=== PATIENT | female | born 1960 | race Caucasian/White ===

== ENCOUNTER 2025-03-31 14:47 | Inpatient (IN) ==
--- NOTE | 2025-03-31 15:08 | Emergency Department Note ---
Impression & Plan Acute pericardial effusion, Pleural effusion, Chest pain, Anemia, Abnormal EKG, Acute headache, Acute neck pain ED Provider Note NAME: DANIEL CABRAL AGE: 64 SEX: F : 1960 ARRIVES VIA: Walk-In INFORMANT: Patient, ED PROVIDER(S): Johnny Stack DO CHIEF COMPLAINT: Chest pain HPI: The patient is a 64-year-old female who presented to the emergency department for an evaluation of chest pain. The patient describes left-sided chest pain that she has been noticing over the course the last few weeks. The patient had an outpatient workup which did show some degree of anemia. She had an inpatient stay at [facility]. At that time she was found to have bilateral pleural effusions. She did have thoracentesis of the left side pleural effusion. The patient states that she was feeling better for short period of time. She was also noted to be anemic at that time. She had been started on colchicine. She was feeling somewhat improved but then symptoms started to worsen. She presents emerged part today because of worsening symptoms. She has been coughing. She has had some productivity of sputum. She denies having any hemoptysis. ROS: See above HPI for pertinent positives & negatives. A total of 10 systems reviewed and were otherwise negative. PAST MEDICAL HISTORY: See Below PAST SURGICAL HISTORY: See Below FAMILY HISTORY: See Below SOCIAL HISTORY: See Below HOME MEDICATIONS: See Below ALLERGIES: See Below VITALS: See Below PHYSICAL EXAMINATION: GENERAL: The patient is awake and alert. The patient appears very uncomfortable. EYES: The conjunctivae are clear. The pupils are round and reactive. EARS, NOSE, MOUTH AND THROAT: The nose is without any evidence of any deformity. Tympanic membranes were clear. NECK: The neck is nontender and supple. RESPIRATORY: Diminished breath sounds were noted bilaterally. There were rales at the left base. There was no crepitus noted. CARDIOVASCULAR: Regular rate and rhythm noted there no murmurs rubs or gallops normal S1 normal S2. GASTROINTESTINAL: The abdomen is soft. Abdomen is nontender. MUSCULOSKELETAL/EXTREMITIES: There is no evidence of gross deformity full range of motion is noted in the hips and shoulders. SKIN: There is no obvious evidence of any rash. There are no petechiae, pallor or cyanosis noted. NEUROLOGIC: Patient is awake alert and oriented x3 MEDICAL DECISION MAKING: The patient is a 64-year-old female who presented to the emergency department for an evaluation of chest pain. The patient has a history of recently diagnosed pericarditis and pleural effusion. The patient was taking colchicine. The patient was also started on Lasix recently. The patient started having returning of symptoms and worsening pain. She was also having trouble breathing. She had exertional dyspnea. I discussed patient's laboratory and radiographic studies with her. She appears to have an elevation in her white blood cell count as well as a return of the pleural effusion. I was concerned this could represent an underlying infection. She was started on IV antibiotics. She was treated with pain medication and IV fluids in the emergency department. She was reevaluated multiple times. I discussed the patient's laboratory and radiographic studies with the on-call pulmonary doctor as well as the on-call [facility]ist. They have agreed to evaluate the patient for further management and disposition. Triage Nursing notes reviewed. Prior medical records reviewed Vital Signs: reviewed and remarkable for no significant abnormalities Differential diagnosis: Cardiac ischemia, aortic dissection, pulmonary embolism, pneumothorax, pneumonia, pericarditis, myocarditis, esophageal rupture, GERD, cholecystitis, pancreatitis, musculoskeletal, as well as other pathologies. ER treatment provided: See below Diagnostics interpreted by me: ECG: EKG was obtained in the emergency department. My interpretation is normal sinus rhythm at 90 bpm. There is no ectopy. Nonspecific T wave flattening and T wave inversions were noted. Inferior Q waves were noted. Cardiac Monitoring: An order was placed for continuous cardiac monitoring. The monitor shows a rate of 72 bpm with sinus rhythm. Laboratory studies: As stated above and show below. Imaging studies: See below. Radiographic imaging was reviewed by myself Consultation(s): I discussed this case with Dr. Agarwal who is on-call for pulmonary medicine. I discussed this case with Dr. Oropeza who is on-call for the [facility]ist group. Past Med/Surg History Problem List (Updated 03/31/25 @ 19:22 by Johnny Stack DO) Acute neck pain (Acute) Acute headache (Acute) Abnormal EKG (Acute) Pericardial effusion Anemia (Acute) Chest pain (Acute) Pleural effusion (Acute) Acute pericardial effusion (Acute) Anxiety Dyslipidemia Medical History Pleural effusion Anemia Surgical History History of thoracentesis Social History Smoking Status: Never smoker Preferred Language: Persian Feels Safe at Home: Yes Allergies Allergies Allergy/AdvReac Type Severity Reaction Status Date / Time tramadol Allergy Severe Vomiting/Le Unverified 03/31/25 17:25 thargic [id number] Reductase AdvReac Unknown Unknown Unverified 03/31/25 17:25 Inhibitor Home Meds Home Medications Medication Instructions Recorded Confirmed escitalopram oxalate 10 mg tablet 10 mg PO QAM 03/31/25 03/31/25 fenofibrate nanocrystallized 145 145 mg PO QAM 03/31/25 03/31/25 mg tablet furosemide 40 mg tablet 40 mg PO QAM 03/31/25 03/31/25 multivitamin 1 tab PO QAM 03/31/25 03/31/25 potassium chloride 20 mEq 20 meq PO BID 03/31/25 03/31/25 tablet,extended release Results & Data (ED) Vital Signs Vital Signs - 24 hr 03/31/25 14:51 03/31/25 15:06 03/31/25 15:06 Temperature 36.8 C Temperature Source Temporal Artery Scan Pulse Rate 101 H 92 H Pulse Rate from SpO2 Sensor 92 H Pulse Rhythm Respiratory Rate 20 27 H Respiratory Effort / Characteristics Non-Labored Respiratory Depth Normal Blood Pressure 118/76 114/82 Blood Pressure Mean 90 92 Pulse Oximetry 97 97 100 Oxygen Delivery Method Room Air Room Air Sepsis Recent Fever Within 48 Hours No Sepsis New/Unexplained Change in Mental Status Yes Sepsis Action Taken by Nursing Physician Notified 03/31/25 15:08 03/31/25 15:27 03/31/25 17:05 Temperature Temperature Source Pulse Rate 92 H 94 H 81 Pulse Rate from SpO2 Sensor Pulse Rhythm Regular Respiratory Rate 16 23 Respiratory Effort / Characteristics Respiratory Depth Blood Pressure 104/61 Blood Pressure Mean 75 Pulse Oximetry 99 Oxygen Delivery Method Room Air Sepsis Recent Fever Within 48 Hours Sepsis New/Unexplained Change in Mental Status Sepsis Action Taken by Nursing 03/31/25 18:02 Temperature Temperature Source Pulse Rate 72 Pulse Rate from SpO2 Sensor 72 Pulse Rhythm Respiratory Rate 15 Respiratory Effort / Characteristics Respiratory Depth Blood Pressure 94/59 L Blood Pressure Mean 70 Pulse Oximetry 97 Oxygen Delivery Method Room Air Sepsis Recent Fever Within 48 Hours Sepsis New/Unexplained Change in Mental Status Sepsis Action Taken by [facility] Medications Current Medication List: was personally reviewed by me Laboratory Data Attestation: I reviewed the patient's lab results. 03/31/25 15:03 03/31/25 15:03 Lab Results 03/31/25 03/31/25 03/31/25 Range/Units 15:03 15:04 15:14 WBC 16.13 H (4.8-10.8) K/ul RBC 3.76 L (4.20-5.40) M/uL Hgb 9.7 L (12.0-16.0) g/dl Hct 30.4 L (37.0-47.0) % MCV 80.9 (80.0-100.0) fL MCH 25.8 (25.0-34.0) pg MCHC 31.9 L (32.0-36.0) g/dL RDW Std Deviation 40.3 (36.4-46.3) fL RDW Coeff of Humphrey 13.8 (11.5-14.5) % Plt Count 583 H (130-400) K/uL MPV 9.8 (9.4-12.4) fL Immature Gran % (Auto) 0.4 % Neut % (Auto) 83.5 % Lymph % (Auto) 10.7 % [place] % (Auto) 5.1 % Eos % (Auto) 0.1 % Baso % (Auto) 0.2 % Neut # (Auto) 13.47 H (1.40-6.50) K/uL Lymph # (Auto) 1.72 (1.20-3.40) K/uL [place] # (Auto) 0.82 H (0.11-0.59) K/uL Eos # (Auto) 0.01 (0.00-0.50) K/uL Baso # (Auto) 0.04 (0.00-0.20) K/uL Immature Gran # (Auto) 0.07 (0.01-0.20) K/uL ESR 108 H (0-30) mm/hr PT 12.4 H (9.0-12.0) Seconds INR 1.2 H (0.9-1.1) APTT 30 (21-31) Seconds PTT Ratio 1.1 D-Dimer 45367 H* (0-500) ug/L FEU Sodium 134 L (136-145) mmol/L Potassium 3.9 (3.5-5.1) mmol/L Chloride 98 (98-107) mmol/L Carbon Dioxide 25 (21-32) mmol/L Anion Gap 11 (3-11) BUN 16 (6-23) mg/dl Creatinine 0.67 (0.6-1.2) mg/dl Est Cr Clr Drug Dosing 70.2 ml/min eGFR 97.54 BUN/Creatinine Ratio 23.9 H (10-20) Glucose 98 (70-99(Fasting)) mg/dl Calcium 9.0 (8.6-10.3) mg/dl Magnesium 1.9 (1.7-2.4) mg/dl Total Bilirubin 0.3 (0.2-1.0) mg/dl AST 23 (13-39) U/L ALT 33 (7-52) U/L Alkaline Phosphatase 79 (34-104) U/L Troponin I High Sens 4.0 (0-14) pg/ml C-Reactive Protein 18.47 H (0-0.5) mg/dl B-Natriuretic Peptide 125 H (0-100) pg/ml Total Protein 7.4 (6.0-8.3) gm/dl Albumin 3.3 L (3.4-5.0) gm/dl Globulin 4.1 H (2.5-4.0) gm/dl Albumin/Globulin Ratio 0.8 L (0.9-2) Procalcitonin 0.12 (0-0.5) ng/ml TSH 1.344 (0.300-4.500) uIu/ml Anaplasma Smear See Comment Babesia Smear See Comment Lyme Disease Screen Negative (Negative) Administered Medications Discontinued Medications Acetaminophen (Ofirmev) 1,000 mg in 100 mls @ 400 mls/hr IV NOW STA Stop: 03/31/25 16:22 Last Infusion: 03/31/25 16:56 Dose: Infused Documented By: Admin: 03/31/25 16:38 Dose: 400 mls/hr Documented By: ANABELLE Piperacillin Sod/Tazobactam Sod (Zosyn) 4.5 gm in 100 mls @ 200 mls/hr IV NOW ONE; Protocol Stop: 03/31/25 16:44 Last Infusion: 03/31/25 17:53 Dose: Infused Documented By: Admin: 03/31/25 17:08 Dose: 200 mls/hr Documented By: ANABELLE Sodium Chloride (Nss) 500 mls @ 999 mls/hr IV .Q31M ONE Stop: 03/31/25 17:05 Last Infusion: 03/31/25 17:53 Dose: Infused Documented By: Admin: 03/31/25 16:38 Dose: 999 mls/hr Documented By: ANABELLE Ioversol (Optiray 320 125ml) 120 ml IV ONCE ONE Stop: 03/31/25 16:35 Last Admin: 03/31/25 16:34 Dose: 120 ml Documented By: TAWANA Ketorolac Tromethamine (Ketorolac Tromethamine 15 Mg/Ml Vial) 10 mg IV NOW ONE Stop: 03/31/25 14:58 Last Admin: 03/31/25 15:24 Dose: 10 mg Documented By: ANABELLE Morphine Sulfate (Morphine Sulfate 4 Mg/Ml 1 Ml Carp\Vial) 4 mg IV NOW STA Stop: 03/31/25 14:58 Last Admin: 03/31/25 15:25 Dose: Not Given Documented By: ANABELLE Ondansetron HCl (Ondansetron Inj 2 Mg/Ml 2 Ml Vial) 4 mg IV NOW STA Stop: 03/31/25 14:58 Last Admin: 03/31/25 15:58 Dose: Not Given Documented By: ANABELLE Imaging Data Attestation: I personally reviewed and interpreted this imaging study as follows: My Impression: 1 view chest x-ray was obtained in the emergency department. My interpretation is cardiomegaly with left pleural effusion, final report below. Radiologist's Impression: Chest X-Ray 03/31/25 14:57 Chest radiograph, one view History: Chest pain Comparison: None Findings: Single AP view of the chest performed. No focal consolidation. Small left pleural effusion. No pneumothorax. The cardiomediastinal silhouette is within normal limits. Normal pulmonary vascularity. No evidence for lymphadenopathy. No visualized bony or soft tissue abnormality. Impression: Small left pleural effusion Electronically signed by Salvatore Lauren 03-31-2025 3:41 PM Chest CTA 03/31/25 16:04 CT pulmonary angiogram with IV contrast History: Chest pain COMPARISON: None TECHNIQUE: CT angiography of the chest was performed without IV contrast followed by IV contrast, including 3D post processing CTA image reconstruction. Dose reduction techniques were achieved by using automatic exposure control and/or adjustment of mA and/or kV according to patient size and/or use of iterative reconstruction technique. FINDINGS: Diagnostic quality: Adequate There is no evidence for pulmonary embolism. The heart is not enlarged. Moderate coronary calcification. There is a moderate pericardial effusion. There are no abnormally enlarged hilar or mediastinal lymph nodes. The central tracheobronchial tree is clear. There is a small left and a trace right pleural effusion. Compressive atelectasis of the left lower lobe. Limited visualized upper abdomen. No destructive osseous changes are seen. IMPRESSION: No evidence for pulmonary embolism. Moderate pericardial effusion. Consider pericarditis. Small left and trace right pleural effusion. Electronically signed by Salvatore Lauren 03-31-2025 4:55 PM Head CTA 03/31/25 16:[address] without contrast CT angiogram of the neck CT angiogram of the brain with contrast Provided History: Headache Comparison: None Technique: HEAD CT: Using multidetector thin collimation helical acquisition technique, axial, coronal and sagittal CT images from the skull base to the vertex were obtained without intravenous contrast. HEAD and NECK CTA: During rapid bolus intravenous injection of nonionic contrast material, axial images were obtained using thin collimation multidetector helical technique from the base of the neck through the of vertex of the head. This CT angiogram data was reconstructed at thin intervals with mild overlap. 3D reconstructions were obtained. The axial source images, multiplanar reformations, 3D reconstructions in both maximum intensity projection display and volume rendered models were reviewed. Dose reduction techniques were achieved by using automatic exposure control and/or adjustment of mA and/or kV according to patient size and/or use of iterative reconstruction technique. Findings: Head CT: There is no intracranial hemorrhage, mass effect, or midline shift. Frey/white matter differentiation in both cerebral hemispheres is preserved. Ventricles are proportionate to the cerebral sulci. Head CTA demonstrates no aneurysm or stenosis of the major intracranial arteries. Neck CTA demonstrates no stenosis of the major cervical arteries. The origins of the great vessels from the aortic arch are patent. No mass is noted within the visualized portions of the cervical soft tissues or lung apices. Left pleural effusion. Impression: 1. Head CTA demonstrates no aneurysm or stenosis of the major intracranial arteries, 2. Neck CTA demonstrates no stenosis of the major cervical arteries. 3. No intracranial hemorrhage on the noncontrast head CT. Electronically signed by Salvatore Lauren 03-31-2025 4:53 PM Neck CTA 03/31/25 16:[address] without contrast CT angiogram of the neck CT angiogram of the brain with contrast Provided History: Headache Comparison: None Technique: HEAD CT: Using multidetector thin collimation helical acquisition technique, axial, coronal and sagittal CT images from the skull base to the vertex were obtained without intravenous contrast. HEAD and NECK CTA: During rapid bolus intravenous injection of nonionic contrast material, axial images were obtained using thin collimation multidetector helical technique from the base of the neck through the of vertex of the head. This CT angiogram data was reconstructed at thin intervals with mild overlap. 3D reconstructions were obtained. The axial source images, multiplanar reformations, 3D reconstructions in both maximum intensity projection display and volume rendered models were reviewed. Dose reduction techniques were achieved by using automatic exposure control and/or adjustment of mA and/or kV according to patient size and/or use of iterative reconstruction technique. Findings: Head CT: There is no intracranial hemorrhage, mass effect, or midline shift. Frey/white matter differentiation in both cerebral hemispheres is preserved. Ventricles are proportionate to the cerebral sulci. Head CTA demonstrates no aneurysm or stenosis of the major intracranial arteries. Neck CTA demonstrates no stenosis of the major cervical arteries. The origins of the great vessels from the aortic arch are patent. No mass is noted within the visualized portions of the cervical soft tissues or lung apices. Left pleural effusion. Impression: 1. Head CTA demonstrates no aneurysm or stenosis of the major intracranial arteries, 2. Neck CTA demonstrates no stenosis of the major cervical arteries. 3. No intracranial hemorrhage on the noncontrast head CT. Electronically signed by Salvatore Lauren 03-31-2025 4:53 PM Abdomen/Pelvis CT 03/31/25 16:20 EXAMINATION: CT of the abdomen and pelvis performed after the administration of IV contrast TECHNIQUE: Helical CT images from the lung bases through the symphysis pubis were obtained with contrast. Coronal and sagittal reformatted images were generated at a workstation for further assessment. Dose reduction techniques were achieved by using automatic exposure control and/or adjustment of mA and/or kV according to patient size and/or use of iterative reconstruction technique. COMPARISON: None HISTORY: Abdominal pain FINDINGS: Liver: No suspicious liver lesions. Portal veins appear patent. Gallbladder: No gallstones. No evidence of acute cholecystitis. Spleen: Normal size. Pancreas: No suspicious pancreatic lesions. The pancreatic duct is not dilated. Adrenal glands: No adrenal nodules. Kidneys: No hydronephrosis or obstructing renal stones. Bladder / Pelvic organs: No masses. Hysterectomy. Trace fluid in the pelvis is nonspecific, likely related to volume status, given the pleural effusions.. Bowel: No bowel obstruction. No abnormal bowel wall thickening. The appendix is unremarkable. Lymph nodes: No retroperitoneal, mesenteric, or pelvic lymphadenopathy. Peritoneum / Retroperitoneum: Trace ascites in the right upper quadrant. Vessels: No infrarenal aortic aneurysm. Bones and soft tissues: No suspicious lesion in the bones. IMPRESSION: No acute process. Trace ascites. Electronically signed by Salvatore Lauren 03-31-2025 5:11 PM Discharge Plan Visit Data Chief Complaint: Shortness of Breath/Dyspnea Stated Complaint: HARD TO BREATH, PAIN IN THE CHEST,EARS AND BONES ED Provider: Johnny Stack Discharge Problem: Acute pericardial effusion, Pleural effusion, Chest pain, Anemia, Abnormal EKG, Acute headache, Acute neck pain Patient Disposition: Being Evaluated by Hospitalist Condition: Fair Forms Stand Alone Forms: [facility] Prescriptions: No Action multivitamin Tablet 1 tab PO QAM furosemide 40 mg Tablet 40 mg PO QAM escitalopram oxalate 10 mg tablet 10 mg PO QAM fenofibrate nanocrystallized 145 mg tablet 145 mg PO QAM potassium chloride 20 mEq Tablet Extended Release 20 meq PO BID Referrals Referrals: Javier Stephen MD [Outside Practitioners] -
[2025-03-31] MEDS: KETOROLAC TROMETHAMINE 15 MG/ML VIAL IV ONE (15:24)
[2025-03-31] MEDS: MoRPHine SULFATE 4 MG/ML 1 ML CARP\\VIAL IV STA (15:25)
[2025-03-31 15:38] LABS: Hematocrit (blood only) 30.4 % (37.0-47.0); Hemoglobin 9.7 g/dl (12.0-16.0); Immature Granulocytes # (auto) 0.07 K/uL (0.01-0.20); Immature Granulocytes % (auto) 0.4 %; Mean Corpuscular Hemoglobin 25.8 pg (25.0-34.0); Mean Corpuscular Volume 80.9 fL (80.0-100.0); Platelet Count 583 K/uL (130-400); RDW Standard Deviation 40.3 fL (36.4-46.3); Red Blood Count 3.76 M/uL (4.20-5.40); White Blood Count 16.13 K/ul (4.8-10.8)
--- NOTE | 2025-03-31 15:41 | XRay Report ---
Chest radiograph, one view History: Chest pain Comparison: None Findings: Single AP view of the chest performed. No focal consolidation. Small left pleural effusion. No pneumothorax. The cardiomediastinal silhouette is within normal limits. Normal pulmonary vascularity. No evidence for lymphadenopathy. No visualized bony or soft tissue abnormality. Impression: Small left pleural effusion Electronically signed by Salvatore Lauren 03-31-2025 3:41 PM
[2025-03-31 15:52] LABS: Anion Gap 11.0 (3-11); Bilirubin,Total 0.3 mg/dl (0.2-1.0); Calcium 9.0 mg/dl (8.6-10.3); Carbon Dioxide 25.0 mmol/L (21-32); Chloride 98.0 mmol/L (98-107); Magnesium 1.9 mg/dl (1.7-2.4); Potassium 3.9 mmol/L (3.5-5.1); Sodium 134.0 mmol/L (136-145)
[2025-03-31 15:58] LABS: Alanine Aminotransferase 33.0 U/L (7-52); Albumin Globulin Ratio 0.8 (0.9-2); Alkaline Phosphatase 79.0 U/L (34-104); Blood Urea Nitrogen 16.0 mg/dl (6-23); Creatinine Clr Calc Pharmacy 70.2 ml/min; Globulin 4.1 gm/dl (2.5-4.0); Glucose 98.0 mg/dl (70-99(Fasting)); Total Protein 7.4 gm/dl (6.0-8.3)
[2025-03-31] MEDS: ONDANSETRON INJ 2 MG/ML 2 ML VIAL IV STA (15:58)
[2025-03-31 16:17] LABS: INR 1.2 (0.9-1.1); Partial Thromboplastin Time 30 Seconds (21-31); Prothrombin Time 12.4 Seconds (9.0-12.0)
[2025-03-31] MEDS: OPTIRAY 320 125ml IV ONE (16:34)
[2025-03-31] MEDS: ACETAMINOPHEN 1,000 MG/100 ML VIAL IV STA (16:38)
[2025-03-31] MEDS: SODIUM CHLORIDE 0.9% 500 ML IV ONE (16:38)
--- NOTE | 2025-03-31 16:53 | CT Scan Report ---
Head CT without contrast CT angiogram of the neck CT angiogram of the brain with contrast Provided History: Headache Comparison: None Technique: HEAD CT: Using multidetector thin collimation helical acquisition technique, axial, coronal and sagittal CT images from the skull base to the vertex were obtained without intravenous contrast. HEAD and NECK CTA: During rapid bolus intravenous injection of nonionic contrast material, axial images were obtained using thin collimation multidetector helical technique from the base of the neck through the of vertex of the head. This CT angiogram data was reconstructed at thin intervals with mild overlap. 3D reconstructions were obtained. The axial source images, multiplanar reformations, 3D reconstructions in both maximum intensity projection display and volume rendered models were reviewed. Dose reduction techniques were achieved by using automatic exposure control and/or adjustment of mA and/or kV according to patient size and/or use of iterative reconstruction technique. Findings: Head CT: There is no intracranial hemorrhage, mass effect, or midline shift. Frey/white matter differentiation in both cerebral hemispheres is preserved. Ventricles are proportionate to the cerebral sulci. Head CTA demonstrates no aneurysm or stenosis of the major intracranial arteries. Neck CTA demonstrates no stenosis of the major cervical arteries. The origins of the great vessels from the aortic arch are patent. No mass is noted within the visualized portions of the cervical soft tissues or lung apices. Left pleural effusion. Impression: 1. Head CTA demonstrates no aneurysm or stenosis of the major intracranial arteries, 2. Neck CTA demonstrates no stenosis of the major cervical arteries. 3. No intracranial hemorrhage on the noncontrast head CT. Electronically signed by Salvatore Lauren 03-31-2025 4:53 PM
--- NOTE | 2025-03-31 16:55 | CT Scan Report ---
CT pulmonary angiogram with IV contrast History: Chest pain COMPARISON: None TECHNIQUE: CT angiography of the chest was performed without IV contrast followed by IV contrast, including 3D post processing CTA image reconstruction. Dose reduction techniques were achieved by using automatic exposure control and/or adjustment of mA and/or kV according to patient size and/or use of iterative reconstruction technique. FINDINGS: Diagnostic quality: Adequate There is no evidence for pulmonary embolism. The heart is not enlarged. Moderate coronary calcification. There is a moderate pericardial effusion. There are no abnormally enlarged hilar or mediastinal lymph nodes. The central tracheobronchial tree is clear. There is a small left and a trace right pleural effusion. Compressive atelectasis of the left lower lobe. Limited visualized upper abdomen. No destructive osseous changes are seen. IMPRESSION: No evidence for pulmonary embolism. Moderate pericardial effusion. Consider pericarditis. Small left and trace right pleural effusion. Electronically signed by Salvatore Lauren 03-31-2025 4:55 PM
[2025-03-31] MEDS: PIPERACILLIN/TAZOBACTAM 4.5 GM/100 ML BAG IV ONE (17:08)
--- NOTE | 2025-03-31 17:11 | CT Scan Report ---
EXAMINATION: CT of the abdomen and pelvis performed after the administration of IV contrast TECHNIQUE: Helical CT images from the lung bases through the symphysis pubis were obtained with contrast. Coronal and sagittal reformatted images were generated at a workstation for further assessment. Dose reduction techniques were achieved by using automatic exposure control and/or adjustment of mA and/or kV according to patient size and/or use of iterative reconstruction technique. COMPARISON: None HISTORY: Abdominal pain FINDINGS: Liver: No suspicious liver lesions. Portal veins appear patent. Gallbladder: No gallstones. No evidence of acute cholecystitis. Spleen: Normal size. Pancreas: No suspicious pancreatic lesions. The pancreatic duct is not dilated. Adrenal glands: No adrenal nodules. Kidneys: No hydronephrosis or obstructing renal stones. Bladder / Pelvic organs: No masses. Hysterectomy. Trace fluid in the pelvis is nonspecific, likely related to volume status, given the pleural effusions.. Bowel: No bowel obstruction. No abnormal bowel wall thickening. The appendix is unremarkable. Lymph nodes: No retroperitoneal, mesenteric, or pelvic lymphadenopathy. Peritoneum / Retroperitoneum: Trace ascites in the right upper quadrant. Vessels: No infrarenal aortic aneurysm. Bones and soft tissues: No suspicious lesion in the bones. IMPRESSION: No acute process. Trace ascites. Electronically signed by Salvatore Lauren 03-31-2025 5:11 PM
--- NOTE | 2025-03-31 18:00 | History & Physical Report ---
Date of Service March 31, 2025 Assessment & Plan (1) Pericardial effusion: Plan: #Pericardial effusion -Moderate on CTA chest -No s/s tamponade. HDS -TTE on 03/02 normal EF and no pericardial effusion per report -Small pericardial effusion was noted at OSH 03/05 -CT 03/21 showed a small pericardial effusion -No history of pericarditis or autoimmune disease -Inflammatory markers greatly elevated -Etiology unclear and differential is broad but suspect autoimmune disease -Denies trauma. CT chest abd/pelvis neg for malignancy Plan -Send viral panel -Send autoimmune panel -Lyme pending -Check TSH -Appreciate cardio input -Cardiac monitoring -Monitor for s/s tamponade #Bilateral Pleural effusions -S/p 450cc drained at OSH in [place]. no pleural fluid analysis available -CTA here showing small/trace b/l effusions -Significant leukocytosis -Doubtful bacterial given her presentation and findings -Likely same etiology as is causing her pericardial effusion Plan -Given her atypical presentation, elevated inflammatory markers and leukocytosis, will begin empiric coverage with unasyn -Appreciate pulm input #Anemia -No s/s acute blood loss -Hgb 9.7 Hgb 11.3 on 03/29 -Normocytic -Suspect ACD but will send Fe panel, B12, folate #Chest pain -Non cardiac chest pain by description -Her Trop is normal -Timing and presentation does not fit ACS/UA #History of HFpEF -Recently diagnosed in february -BNP minimally elevated but no over signs of volume overload -Hold home lasix for now Greater than 90 minutes were spent discussing with ED, reviewing chart, labs, imaging, talking with patient, placing orders and writing documentation History of Present Illness Chief Complaint: SOB, chest pain, joint pain Primary Care Provider: Yvonne Martinez PA-C Ms. Ford is a pleasant 64F with complicated recent PMH who presents with SOB, chest pain, joint pain, fatigue She has had multiple admissions at different hospitals beginning in february for chest pain, SOB. She was admitted at [facility] and had a CT chest 03/05 was neg for PE but did show small pericardial effusion. She was discharged and went on vacation to [place]. There, she developed worsening SOB and was admitted on 03/21 at [facility] in [place]. She was found to have b/l pleural effusions. She was diagnosed with acute HFpEF and started on lasix. She had a thoracentesis. Pleural fluid analysis was not available on EMR. She saw her PCP on 03/29 who recommended she follow up with cardio, pulm and rheumatology. She presents today because she is unable to tolerate the SOB. Her chest pain is substernal radiating to the left and right. She states all of these symptoms began at the same time in february. before that, she denies having any medical issues other than HLD. Chest pain is not exertional. nothing makes it better or worse. no history of CAD or any heart disease prior to february. Denies history of cancer or autoimmune disease. Prior to onset of symptoms, she was just taking a fibrate for HLD. ED vitals stable. Per last PCP note, SBP was in the 90s CT chest showing small L and trace R pleural effusions, moderate pericardial effusion Allergies Allergy/AdvReac Type Severity Reaction Status Date / Time tramadol Allergy Severe Vomiting/Le Unverified 03/31/25 17:25 thargic [id number]-BtY Reductase AdvReac Unknown Unknown Unverified 03/31/25 17:25 Inhibitor Home Medications Medication Instructions Recorded Confirmed Type escitalopram oxalate 10 mg tablet 10 mg PO QAM 03/31/25 03/31/25 History fenofibrate nanocrystallized 145 145 mg PO QAM 03/31/25 03/31/25 History mg tablet furosemide 40 mg tablet 40 mg PO QAM 03/31/25 03/31/25 History multivitamin 1 tab PO QAM 03/31/25 03/31/25 History potassium chloride 20 mEq 20 meq PO BID 03/31/25 03/31/25 History tablet,extended release Past Med/Surg History Problem List (Updated 03/31/25 @ 18:11 by Luke Oropeza DO) Pericardial effusion Anemia (Acute) Chest pain (Acute) Pleural effusion (Acute) Acute pericardial effusion (Acute) Anxiety Dyslipidemia Medical History Pleural effusion Anemia Surgical History History of thoracentesis Social History Smoking Status: Never smoker Preferred Language: Pashto Feels Safe at Home: Yes Review of Systems Review of Systems: 14 point ROS neg unless stated in HPI Physical Exam Physical Exam: Vitals and labs reviewed General: Well appearing, NAD HEENT: EOMI, PERRLA Neck: Supple Cardiac: RRR no rubs gallops or murmurs Lungs: CTA no rhonchi wheezing or rales Abd: S NT ND BS positive : Deffered MSK: Full ROM. No obvious deformities Ext: No Edema cyanosis Skin: Warm, Dry Neuro: AOx3 No focal deficits. Psych: Normal Mood Results & Data Results & Data Vital Signs (Past 12 Hours) Vital Signs Temp Pulse Resp BP Pulse Ox O2 Del Method 03/31/25 17:05 81 23 104/61 03/31/25 15:27 94 H 03/31/25 15:08 92 H 16 99 Room Air 03/31/25 15:06 92 H 27 H 114/82 100 03/31/25 15:06 97 Room Air 03/31/25 14:51 36.8 C 101 H 20 118/76 97 Room Air Laboratory Results Abnormal lab results 03/31/25 03/31/25 03/31/25 Range/Units 15:03 15:04 15:14 WBC 16.13 H (4.8-10.8) K/ul RBC 3.76 L (4.20-5.40) M/uL Hgb 9.7 L (12.0-16.0) g/dl Hct 30.4 L (37.0-47.0) % MCHC 31.9 L (32.0-36.0) g/dL Plt Count 583 H (130-400) K/uL Neut # (Auto) 13.47 H (1.40-6.50) K/uL [place] # (Auto) 0.82 H (0.11-0.59) K/uL ESR 108 H (0-30) mm/hr PT 12.4 H (9.0-12.0) Seconds INR 1.2 H (0.9-1.1) D-Dimer 40844 H* (0-500) ug/L FEU Sodium 134 L (136-145) mmol/L BUN/Creatinine Ratio 23.9 H (10-20) C-Reactive Protein 18.47 H (0-0.5) mg/dl B-Natriuretic Peptide 125 H (0-100) pg/ml Albumin 3.3 L (3.4-5.0) gm/dl Globulin 4.1 H (2.5-4.0) gm/dl Albumin/Globulin Ratio 0.8 L (0.9-2) Diagnostic Findings Chest X-Ray 03/31/25 14:57 Chest radiograph, one view History: Chest pain Comparison: None Findings: Single AP view of the chest performed. No focal consolidation. Small left pleural effusion. No pneumothorax. The cardiomediastinal silhouette is within normal limits. Normal pulmonary vascularity. No evidence for lymphadenopathy. No visualized bony or soft tissue abnormality. Impression: Small left pleural effusion Electronically signed by Salvatore Lauren 03-31-2025 3:41 PM Chest CTA 03/31/25 16:04 CT pulmonary angiogram with IV contrast History: Chest pain COMPARISON: None TECHNIQUE: CT angiography of the chest was performed without IV contrast followed by IV contrast, including 3D post processing CTA image reconstruction. Dose reduction techniques were achieved by using automatic exposure control and/or adjustment of mA and/or kV according to patient size and/or use of iterative reconstruction technique. FINDINGS: Diagnostic quality: Adequate There is no evidence for pulmonary embolism. The heart is not enlarged. Moderate coronary calcification. There is a moderate pericardial effusion. There are no abnormally enlarged hilar or mediastinal lymph nodes. The central tracheobronchial tree is clear. There is a small left and a trace right pleural effusion. Compressive atelectasis of the left lower lobe. Limited visualized upper abdomen. No destructive osseous changes are seen. IMPRESSION: No evidence for pulmonary embolism. Moderate pericardial effusion. Consider pericarditis. Small left and trace right pleural effusion. Electronically signed by Salvatore Lauren 03-31-2025 4:55 PM Head CTA 03/31/25 16:[address] without contrast CT angiogram of the neck CT angiogram of the brain with contrast Provided History: Headache Comparison: None Technique: HEAD CT: Using multidetector thin collimation helical acquisition technique, axial, coronal and sagittal CT images from the skull base to the vertex were obtained without intravenous contrast. HEAD and NECK CTA: During rapid bolus intravenous injection of nonionic contrast material, axial images were obtained using thin collimation multidetector helical technique from the base of the neck through the of vertex of the head. This CT angiogram data was reconstructed at thin intervals with mild overlap. 3D reconstructions were obtained. The axial source images, multiplanar reformations, 3D reconstructions in both maximum intensity projection display and volume rendered models were reviewed. Dose reduction techniques were achieved by using automatic exposure control and/or adjustment of mA and/or kV according to patient size and/or use of iterative reconstruction technique. Findings: Head CT: There is no intracranial hemorrhage, mass effect, or midline shift. Frey/white matter differentiation in both cerebral hemispheres is preserved. Ventricles are proportionate to the cerebral sulci. Head CTA demonstrates no aneurysm or stenosis of the major intracranial arteries. Neck CTA demonstrates no stenosis of the major cervical arteries. The origins of the great vessels from the aortic arch are patent. No mass is noted within the visualized portions of the cervical soft tissues or lung apices. Left pleural effusion. Impression: 1. Head CTA demonstrates no aneurysm or stenosis of the major intracranial arteries, 2. Neck CTA demonstrates no stenosis of the major cervical arteries. 3. No intracranial hemorrhage on the noncontrast head CT. Electronically signed by Salvatore Lauren 03-31-2025 4:53 PM Neck CTA 03/31/25 16:[address] without contrast CT angiogram of the neck CT angiogram of the brain with contrast Provided History: Headache Comparison: None Technique: HEAD CT: Using multidetector thin collimation helical acquisition technique, axial, coronal and sagittal CT images from the skull base to the vertex were obtained without intravenous contrast. HEAD and NECK CTA: During rapid bolus intravenous injection of nonionic contrast material, axial images were obtained using thin collimation multidetector helical technique from the base of the neck through the of vertex of the head. This CT angiogram data was reconstructed at thin intervals with mild overlap. 3D reconstructions were obtained. The axial source images, multiplanar reformations, 3D reconstructions in both maximum intensity projection display and volume rendered models were reviewed. Dose reduction techniques were achieved by using automatic exposure control and/or adjustment of mA and/or kV according to patient size and/or use of iterative reconstruction technique. Findings: Head CT: There is no intracranial hemorrhage, mass effect, or midline shift. Frey/white matter differentiation in both cerebral hemispheres is preserved. Ventricles are proportionate to the cerebral sulci. Head CTA demonstrates no aneurysm or stenosis of the major intracranial arteries. Neck CTA demonstrates no stenosis of the major cervical arteries. The origins of the great vessels from the aortic arch are patent. No mass is noted within the visualized portions of the cervical soft tissues or lung apices. Left pleural effusion. Impression: 1. Head CTA demonstrates no aneurysm or stenosis of the major intracranial arteries, 2. Neck CTA demonstrates no stenosis of the major cervical arteries. 3. No intracranial hemorrhage on the noncontrast head CT. Electronically signed by Salvatore Lauren 03-31-2025 4:53 PM Abdomen/Pelvis CT 03/31/25 16:20 EXAMINATION: CT of the abdomen and pelvis performed after the administration of IV contrast TECHNIQUE: Helical CT images from the lung bases through the symphysis pubis were obtained with contrast. Coronal and sagittal reformatted images were generated at a workstation for further assessment. Dose reduction techniques were achieved by using automatic exposure control and/or adjustment of mA and/or kV according to patient size and/or use of iterative reconstruction technique. COMPARISON: None HISTORY: Abdominal pain FINDINGS: Liver: No suspicious liver lesions. Portal veins appear patent. Gallbladder: No gallstones. No evidence of acute cholecystitis. Spleen: Normal size. Pancreas: No suspicious pancreatic lesions. The pancreatic duct is not dilated. Adrenal glands: No adrenal nodules. Kidneys: No hydronephrosis or obstructing renal stones. Bladder / Pelvic organs: No masses. Hysterectomy. Trace fluid in the pelvis is nonspecific, likely related to volume status, given the pleural effusions.. Bowel: No bowel obstruction. No abnormal bowel wall thickening. The appendix is unremarkable. Lymph nodes: No retroperitoneal, mesenteric, or pelvic lymphadenopathy. Peritoneum / Retroperitoneum: Trace ascites in the right upper quadrant. Vessels: No infrarenal aortic aneurysm. Bones and soft tissues: No suspicious lesion in the bones. IMPRESSION: No acute process. Trace ascites. Electronically signed by Salvatore Lauren 03-31-2025 5:11 PM Code Status & VTE Plan Code Status full VTE Prophylaxis Plan VTE Prophylaxis will be ordered: Yes
[2025-03-31 19:08] LABS: Thyroid Stimulating Hormone 1.344 uIu/ml (0.300-4.500)
--- NOTE | 2025-03-31 20:10 | Pulmonary Consultation ---
Date of Consultation March 31, 2025 Assessment & Plan (1) Pleural effusion: (2) Acute pericardial effusion: (3) GIBSON (dyspnea on exertion): (4) Chest pain: Plan Symptoms are worrisome for autoimmune disorder however the picture is not clear at this time. We will order connective tissue/autoimmune workup. Will also get CK level. Will perform bedside ultrasound tomorrow morning to see if there is enough fluid to perform thoracentesis. Rheumatology and cardiology are both consulted. Inflammatory markers are significantly elevated, however seems unlikely that this would be an acute bacterial infection given the duration of her symptoms. I reviewed the CT imaging of the chest independently. There are bilateral pleural effusions, left greater than right with adjacent lung atelectasis. There is no PE. There is grossly normal-appearing lung parenchyma without cysts or nodules present. No evidence of bronchiectasis. Pericardial effusion is present. Some possible mild GGO's in the right upper lobe posteriorly. No bulky adenopathy present. Thank you for this consult. I will follow along with you. History of Present Illness History of Present Illness Patient is a pleasant 64-year-old female with a past medical history significant for dyslipidemia and mood disorder. The patient presents to the hospital with worsening chest pain and orthopnea. Imaging of the chest showed a left-sided pleural effusion. Labs showed significant leukocytosis and elevated inflammatory markers and a D-dimer of 20,000. The patient was taken for CT imaging with CTA of the head neck chest abdomen and pelvis. CT of the head was unremarkable. CT of the neck was unremarkable. CT of the chest did not show evidence of pulmonary embolism. A moderate pericardial effusion was noted and small left and trace right pleural effusions were appreciated. CT of the abdomen and pelvis did not show any acute abdominal process, trace ascites was present. The patient was admitted to the hospital service and pulmonary has been consulted. When I examined the patient in the emergency department today she is resting comfortably in bed. She had pillars well and not in distress. The patient states that throughout her life she has been active, was a runner for many years and likes to be outdoors hiking and playing with her grandkids. This spring in December she started becoming more short of breath. She thought that this was due to deconditioning but then in February she developed severe stabbing chest pain that radiated from her chest to her back and orthopnea which made her believe she was having a heart attack for which she presented to the hospital. VA was ruled out. She presented back to the hospital again multiple times for similar symptoms. The patient then went on vacation to [place] and later February and had again severe chest pain and presented to a hospital. In [place] they noted that she had a pericardial effusion and a pleural effusion on the left. She underwent thoracentesis with 450 cc removed. She does not recall the results of the studies and a clear diagnosis was not achieved. The patient was seen in the outpatient setting and started on Lasix and potassium approximately 1 week ago. However today she started having pain again in her chest and orthopnea so she presented back to the hospital. The patient endorses occasional night sweats and weight loss. She says that her weight has decreased from 153 pounds to 128 pounds. She has a low appetite. She feels as though she is more stiff and having generalized joint aches and pains. She feels as though her muscles hurt even if you touch them. She also states that she is more clumsy and has been falling more. She notices some mild finger numbness and occasional nausea with dry mouth. Her home medications include fenofibrate, woman's multivitamin and Lexapro. As mentioned above she started taking Lasix and potassium last week on . The patient denies a personal history of autoimmune disorders, she d oes not travel overseas, she has not had a tick bite in the last year. She is up-to-date on her cancer screening including colon and breast cancer. The patient does note that she was taking Lomaira (phentermine) for weight loss last winter but stopped it in the spring when she started having the chest discomfort. She denies any other [id number] supplements. She is a lifetime non-smoker. 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 Does not travel overseas. Has no pets or birds in the home. On examination she is resting comfortably on room air. Heart is of regular rate and rhythm, no murmurs appreciated. Lungs are clear to auscultation without wheezing. Occasional cough is present productive of greenish colored phlegm. Abdomen is flat and nontender and nondistended. Skin is warm and dry without evidence of rash. Joints are without effusions or deformities throughout. No lymphadenopathy is appreciated in the cervical, supraclavicular or axillary regions. She does endorse pain to palpation of the left axilla. There is also pain when I palpate her posterior neck. The patient states that she possibly had a viral illness last spring but cannot recall if it was close to the time of onset of her chest discomfort. She did not get treated or tested for this illness. Previous investigations: Thoracentesis in February with 450 cc removed, do not have results of study. Transthoracic echocardiogram 03/02/2025: Normal EF, no pericardial effusion. Small pericardial effusion noted from outside hospital on 03/05/2025. CT showed a small pericardial effusion on 03/21/2025. Allergies Allergy/AdvReac Type Severity Reaction Status Date / Time tramadol Allergy Severe Vomiting/Le Unverified 03/31/25 17:25 thargic [id number]-[id number]-[id number] Reductase AdvReac Unknown Unknown Unverified 03/31/25 17:25 Inhibitor Home Medications Medication Instructions Recorded Confirmed Type escitalopram oxalate 10 mg tablet 10 mg PO QAM 03/31/25 03/31/25 History fenofibrate nanocrystallized 145 145 mg PO QAM 03/31/25 03/31/25 History mg tablet furosemide 40 mg tablet 40 mg PO QAM 03/31/25 03/31/25 History multivitamin 1 tab PO QAM 03/31/25 03/31/25 History potassium chloride 20 mEq 20 meq PO BID 03/31/25 03/31/25 History tablet,extended release Patient History Medical History Pleural effusion Anemia Surgical History History of thoracentesis Social History Smoking Status: Never smoker Preferred Language: Fijian Feels Safe at Home: Yes Review of Systems Review of Systems: 12 point review of systems obtained in d etail. Negative except as in my HPI Physical Exam Physical Exam: Physical examination: General: Well-appearing, well-nourished and not in acute distress. HEENT: Normocephalic, atraumatic. Extraocular movements intact. Sclera are nonicteric. No JVD appreciated. Skin: Warm and dry. No rashes appreciated. No jaundice appreciated. Lymphatic: No pathologic/enlarged lymph nodes palpated in the neck, axilla. Cardiovascular: Heart is a regular rate and rhythm, no murmurs appreciated on my exam. No significant lower extremity edema. Lungs: Clear bilaterally, no wheezing appreciated. No crackles. Nontachypneic. Resting comfortably on room air. Abdomen: Nondistended, nontender to palpation. No masses appreciated. Musculoskeletal: Normal muscle mass and tone. No gross joint deformity abnormalities. No effusions appreciated. Neurologic: Awake and alert, oriented. CN II through XII are grossly intact. Speech is fluent. Nonfocal exam. Psychiatric: Appropriate cooperative during my exam. Results & Data Results & Data Vital Signs (Past 12 Hours) Vital Signs Temp Pulse Resp BP Pulse Ox O2 Del Method 03/31/25 18:02 72 15 94/59 L 97 Room Air 03/31/25 17:05 81 23 104/61 03/31/25 15:27 94 H 03/31/25 15:08 92 H 16 99 Room Air 03/31/25 15:06 92 H 27 H 114/82 100 03/31/25 15:06 97 Room Air 03/31/25 14:51 36.8 C 101 H 20 118/76 97 Room Air PG Care Time/CCT Total # of Minutes Spent Total Time Spent with Patient: Total time spent is greater than 50% in coordination of care (as documented) at patient's floor/unit and/or counseling patient: [place] [address] INT INP/OBS CARE 3/75MIN Patient Type New History Comprehensive Exam Comprehensive Medical Decision Making High Complexity Diagnoses Pleural effusion J90 Acute pericardial effusion I30.9 GIBSON (dyspnea on exertion) R06.09 Chest pain R07.9
[2025-03-31 20:16] LABS: Chlamydia pneumoniae PCR Not Detected (NotDetected); Coronavirus 229E PCR Not Detected (NotDetected); Coronavirus CoV-2 (COVID19)PCR Not Detected (NotDetected); Coronavirus HKU1 PCR Not Detected (NotDetected); Coronavirus NL63 PCR Not Detected (NotDetected); Coronavirus OC43PCR Not Detected (NotDetected); Human Metapneumovirus PCR Not Detected (NotDetected); Parainfluenza Virus 1 PCR Not Detected (NotDetected); Parainfluenza Virus 2 PCR Not Detected (NotDetected); Parainfluenza Virus 3 PCR Not Detected (NotDetected); Parainfluenza Virus 4 PCR Not Detected (NotDetected); Respiratory Syncytial VirusPCR Not Detected (NotDetected); Rhinovirus/Enterovirus PCR Not Detected (NotDetected)
[2025-03-31] MEDS ORDERED: ONDANSETRON INJ 2 MG/ML 2 ML VIAL IV PRN (20:18)
[2025-03-31] MEDS: AMPICILLIN/SULBACTAM SOD 3,000 MG/100 ML BAG IV SCH (20:40)
[2025-03-31] MEDS: HEPARIN SOD 5,000 UNIT/0.5 ML VIAL SQ SCH (20:41)
[2025-03-31 20:54] LABS: Creatine Kinase 45.0 U/L (26-192)
[2025-03-31] MEDS: ACETAMINOPHEN 325 MG TAB PO PRN (22:33)
[2025-04-01 06:31] LABS: Hematocrit (blood only) 26.1 % (37.0-47.0); Hemoglobin 8.6 g/dl (12.0-16.0); Immature Granulocytes # (auto) 0.06 K/uL (0.01-0.20); Immature Granulocytes % (auto) 0.5 %; Mean Corpuscular Hemoglobin 26.5 pg (25.0-34.0); Mean Corpuscular Volume 80.6 fL (80.0-100.0); Platelet Count 431 K/uL (130-400); RDW Standard Deviation 40.5 fL (36.4-46.3); Red Blood Count 3.24 M/uL (4.20-5.40); White Blood Count 11.62 K/ul (4.8-10.8)
[2025-04-01 06:56] LABS: Alanine Aminotransferase 25.0 U/L (7-52); Albumin Globulin Ratio 0.9 (0.9-2); Alkaline Phosphatase 75.0 U/L (34-104); Anion Gap 7.0 (3-11); Bilirubin,Total 0.3 mg/dl (0.2-1.0); Blood Urea Nitrogen 13.0 mg/dl (6-23); Calcium 8.9 mg/dl (8.6-10.3); Carbon Dioxide 28.0 mmol/L (21-32); Chloride 101.0 mmol/L (98-107); Creatinine Clr Calc Pharmacy 68.1 ml/min; Globulin 3.3 gm/dl (2.5-4.0); Glucose 98.0 mg/dl (70-99(Fasting)); Iron 10.0 mcg/dl (35-150); Potassium 4.0 mmol/L (3.5-5.1); Sodium 136.0 mmol/L (136-145); Total Iron Binding Cap Calc 238.0 mcg/dl (250-450); Total Protein 6.2 gm/dl (6.0-8.3); Transferrin 170.0 mg/dl (200-360); Transferrin (FE) Percent Satur 4.0 % (15-50)
[2025-04-01 07:12] LABS: Ferritin 405.6 ng/ml (8-388)
[2025-04-01 07:13] LABS: Folate (Folic Acid),Ser orPlas 15.72 ng/ml (>5.38)
[2025-04-01 07:14] LABS: Vitamin B12 > 1500 pg/ml (180-914)
[2025-04-01] MEDS: ESCITALOPRAM OXALATE 10 MG TAB PO SCH (07:47)
--- NOTE | 2025-04-01 10:20 | XRay Report ---
SINGLE VIEW CHEST CLINICAL HISTORY: Status post left thoracentesis FINDINGS: An AP, portable, upright chest radiograph is compared to chest x-ray and chest CT dated 03/10. The cardiac silhouette is enlarged, some of which is likely related to a pericardial effusion when compared to yesterday's chest CT. There is mild atherosclerotic calcification of the thoracic a jorge. There are left larger than right pleural effusions with left basilar consolidation. A focus of pleural-based gas at the left lung base may be related to the procedure. No pneumothorax is clearly s een. The skeletal structures are osteopenic. The bony thorax is grossly intact. IMPRESSION: 1. The cardiac silhouette is enlarged. This is likely related to a pericardial effusion when compared to yesterday's chest CT. 2. Left larger than right pleural effusions with left basilar consolidation. 3. A focus of pleural-based gas at the left lung base is likely related to the thoracentesis. No pneu mothorax is clearly seen. Attention at follow-up is recommended. ACT 112: Negative or not required by law. Electronically signed by: Moose Mobley M.D. 04/01/2025 10:19 AM
[2025-04-01 10:45] LABS: Appearance Pleural Fluid Hazy; Color Pleural Fluid Yellow; RBC Pleural Fluid Auto < 2000 /uL; Source Pleural Fluid Left Lung; WBC Pleural Fluid Auto 1806 /uL
--- NOTE | 2025-04-01 10:46 | Procedure Note ---
Procedure Note Date of Service April 01, 2025 Procedure: Diagnostic therapeutic ultrasound-guided catheter thoracentesis Glass Sander Belt: Dr. Darling Agarwal Indication: Pleural effusion Consent: Signed by patient and verified with timeout prior to procedure Anesthesia: 1% lidocaine without epinephrine local. Procedure: Consent was verified and timeout performed. Appropriate imaging studies were reviewed prior to the procedure. Patient was placed in a seated position and limited thoracic ultrasound was performed of the left chest. A pocket of fluid was identified, appropriate site above the diaphragm for thoracentesis was selected and skin was marked. The skin was prepped and draped in normal sterile fashion. Lidocaine was used for local analgesia. Fluid was aspirated via the finder needle. A small skin hyacinth was made with the scalpel and the catheter over the needle apparatus was advanced over the rib into the pleural space. Using the syringe one-way valve system, a total of 160 mL's of yellow cloudy fluid was removed. Procedure was terminated due to lack of flow after 160 mL of fluid w aspirated. The catheter was removed and observed to be intact. A sterile dressing was applied. Post procedure chest x-ray was ordered. Fluid was sent for labs, culture and cytology. Complications: None Blood loss: Minimal Imaging: [id number]-iu-nuux ultrasound was obtained prior to the procedure. Images were stored. In the left hemithorax the spleen and diaphragm was identified with dark anechoic fluid collection was appreciated above the diaphragm. Quad sign was observed defining the boundaries of the effusion. Jellyfish are not appreciated with atelectatic lung visualized within the pleural fluid. Images uploaded[place] [facility] [place]odes (Charges) Pulmonary/Thoracic Procedure 1: Pulmonary and Thoracic: 96477 Thoracentesis w/o imaging Procedure 2: Pulmonary and Thoracic: 06116 US, Chest, real time with imaging documentation Coding CPT Codes Pulmonary/Thoracic - Pulmonary and Thoracic: 12908 Thoracentesis w/o imaging ([id number]) Pulmonary/Thoracic - Pulmonary and Thoracic: 74046 US, Chest, real time with imaging documentation ([id number]) Additional Codes Date of Service (PG.SURGERY)
--- NOTE | 2025-04-01 10:59 | Pulmonology Progress Note ---
Date of Service April 01, 2025 Assessment & Plan (1) Pleural effusion: (2) Acute pericardial effusion: (3) GIBSON (dyspnea on exertion): (4) Chest pain: Plan Patient is a 64-year-old female with minimal past medical history. The patient presented to the hospital on 03/31/2025 with chest pain and orthopnea. The patient has been having progressive symptoms since December of this year. She has had progressive dyspnea, orthopnea, and episodes of chest pain that were severe enough that she would present to the hospital due to concern for KS. The patient was evaluated at hospital in [place] and early March, during that hospitalization she was found to have a pleural effusion and a thoracentesis was done (left thoracentesis 03/22/2025: 450 cc of yellow and cloudy, WBC 1519 with 24% lymphocytes, negative cultures, negative cytology, cytology only commented reactive mesothelial cells, macrophages and lymphocytes. Protein 4.8, LDH 218, glucose 130, cholesterol 90). The patient did not have additional workup performed as she came back to [place]. During this presentation the patient was found to have a D-dimer of 20,000, ESR greater than 100, CRP 18.5. CT angio of the chest showed bilateral pleural effusions, left greater than right, moderate pericardial effusion. Some adjacent atelectasis next to the effusions and some mild GGO's in the posterior aspect. No significant lymphadenopathy. Pulmonary was consulted for pleural effusion. Diagnoses/problem list: Bilateral pleural effusion, left greater than right Moderate pericardial effusion Dyspnea on exertion Orthopnea Markedly elevated inflammatory markers Plan/recommendations: Symptoms are worrisome for autoimmune disorder however the picture is not clear at this time. We will order connective tissue/autoimmune workup. Will also get CK level. Studies are all pending. Thoracentesis was performed at bedside today on the left with 160 mL of yellow hazy fluid obtained. Rheumatology and cardiology are both consulted. Inflammatory markers are significantly elevated, however seems unlikely that th is would be an acute bacterial infection given the duration of her symptoms and low procalcitonin. I reviewed the CT imaging of the chest independently. There are bilateral pleural effusions, left greater than right with adjacent lung atelectasis. There is no PE. There is grossly normal-appearing lung parenchyma without cysts or nodules present. No evidence of bronchiectasis. Pericardial effusion is present. Some mild GGO's in the right upper lobe posteriorly. No bulky adenopathy present. Will follow thoracentesis and serology workup. Thank you for this consult. I will follow along with you. Admission and Anticipated Discharge Date Admission Date: March 31, 2025 Subjective Patient seen and examined at bedside this morning. Daughters with her today. They were able to pull up the thoracentesis results from her procedure that was done in [place], I have documented them in my AMP. Patient is feeling okay today. Not having severe chest pain this morning. Still having intermittent cough. Still is painful when she takes a deep breath. No fevers or chills overnight. Review of Systems Review of Systems: 12 point review of systems obtained in d etail. Negative except as in my HPI Physical Exam Physical Exam: Physical examination: General: Well-appearing, well-nourished and not in acute distress. HEENT: Normocephalic, atraumatic. Extraocular movements intact. Sclera are nonicteric. No JVD appreciated. Skin: Warm and dry. No rashes appreciated. No jaundice appreciated. Lymphatic: No pathologic/enlarged lymph nodes palpated in the neck, axilla. Cardiovascular: Heart is a regular rate and rhythm, no murmurs appreciated on my exam. No significant lower extremity edema. Lungs: Clear bilaterally, no wheezing appreciated. No crackles. Nontachypneic. Resting comfortably on room air. Abdomen: Nondistended, nontender to palpation. No masses appreciated. Musculoskeletal: Normal muscle mass and tone. No gross joint deformity abnormalities. No effusions appreciated. Neurologic: Awake and alert, oriented. CN II through XII are grossly intact. Speech is fluent. Nonfocal exam. Psychiatric: Appropriate cooperative during my exam. Results & Data Results & Data Vital Signs (Past 12 Hours) Vital Signs Temp Pulse Pulse Resp BP Pulse Ox O2 Del Method 04/01/25 09:16 70 04/01/25 08:06 36.7 C 76 18 92/57 L 96 Nasal Cannula 04/01/25 03:02 36.8 C 74 18 103/66 96 Room Air O2 Flow Rate 04/01/25 09:16 04/01/25 08:06 1 04/01/25 03:02 PG Care Time/CCT Total # of Minutes Spent Total Time Spent with Patient: Total time spent is greater than 50% in coordination of care (as documented) at patient's floor/unit and/or counseling patient: Coding [place] [address] SUB INP/OBS CARE 09/02MIN Patient Type Established History Problem Focused Exam Problem Focused Medical Decision Making Straight Forward Diagnoses Pleural effusion J90 Acute pericardial effusion I30.9 GIBSON (dyspnea on exertion) R06.09 Chest pain R07.9
[2025-04-01 11:07] LABS: Bilirubin,Total 0.2 mg/dl (0.2-1.0); Total Protein 6.5 gm/dl (6.0-8.3)
[2025-04-01 11:15] LABS: Basophils, Fluid 2 %; Lymphocytes, Fluid 43 %; Mono,Macrophage,Mesothelial 18 %; Neutrophils, Fluid 37 %
--- NOTE | 2025-04-01 12:15 | Hospitalist Progress Note ---
Date of Service April 01, 2025 Assessment & Plan (1) Pericardial effusion: Plan: 64-year-old lady with PMH of HLD, diaphragmatic hernia, allergic rhinitis, chronic sinusitis, pleural effusion on right, pericardial effusion, chronic constipation, vertigo, headache presents to the hospital 03/31 with complaint of shortness of breath, chest pain, joint pain, fatigue. Of note, she had multiple admissions at different hospital beginning end of December or early February for chest pain, shortness of breath. She reports having chest pain and shortness of breath all along with occasional flares leading her to go to hospital. Towards the February end, she was noted to have small pericardial effusion when she was admitted at [facility]. She then went on a vacation to [place] where she developed again worsening shortness of breath and chest pain and was admitted on 04/07 at [facility] in [place] where she was noted to have bilateral pleural effusion/diagnosed with acute HFpEF/started on Lasix/had thoracentesis on the left which was n egative for bacterial growth and malignancy/recommended rheumatology cardiology and pulmonology follow-up. She is being managed for the following: Pericardial effusion Chest discomfort/pain: Troponin WNL. likely non cardiac chest pain Admitting CTA chest negative for PE, positive for moderate pericardial effusion, +ve for small left and trace right pleural effusion. TTE on 03/02 normal EF and no pericardial effusion per report. Small pericardial effusion was noted at echo 03/05 No history of pericarditis or autoimmune disease. Pt denies fall/traums. CTAP neg for malignancy. TSH WNL. CPK wnl. Etiology unclear and differential is broad but suspect autoimmune disease Inflammatory markers greatly elevated, ESR 108, CRP 18.47 Anaplasma and Babesia smear negative, Lyme screen negative. Viral panel negative. Autoimmune panel pending. Cardiology on board, appreciate recommendation. Monitor for signs and symptoms of tamponade. Bilateral Pleural effusions L>R Rule out pneumonia Elevated D-dimer S/p 450cc drained at OSH in [place]. no bacterial growth and malignancy noted. CTA here showing small/trace b/l effusions Significant leukocytosis at presentation Patient reports daily cough since the beginning of symptoms with occasional greenish sputum. Doubtful bacterial given her technician test systems presentation and findings of non toxic appearance. Procal neg. Likely same etiology as is causing her pericardial effusion, autoimmune Given her atypical presentation, elevated inflammatory markers and leukocytosis, will begin empiric coverage with unasyn --> DC atb if Bl and pl fl Cx are neg. Pulm evaled, Status post left thoracentesis, 160 mL of fluid obtained, follow studies and culture. d/w with rheumatology, recs is solu - M daily and monitor for clinical improvement, f/u w/ rheum on Tues AM (already scheduled). Pt agreeable to steroid Anemia No s/s acute blood loss Outpatient chart review with Hb ranging from 13.7 in 2005 with a gradual drop over the course of several years to the latest one of 11.3 on 03/29/2025. Admitting hemoglobin of 9.7, iron studies suggestive of iron deficiency anemia, vitamin B12 and folate levels WNL. MCV low normal. Patient reports her last colonoscopy was about 2 years ago and she follows every 5 years for colonoscopy denies any history of cancer. Suspect anemia of chronic disease and iron deficiency. get fobt. Will initiate iron infusion daily for 3 days. Start p.o. iron upon discharge. History of HFpEF Recently diagnosed in february BNP minimally elevated but no signs of volume overload Hold home lasix for now DVT prophylaxis: Heparin subcu Full code total time spent: 75 min Admission and Anticipated Discharge Date Admission Date: March 31, 2025 Subjective Patient was seen and examined at bedside. Patient was sitting up in bed, on room air, NAD. Patient reports multiple joint pains across the body, no erythema/swelling/exquisite tenderness noted on exam. Patient's daughter at bedside were also updated on plan of care. Patient reports daily cough with occasional greenish sputum. Patient denies fever or chills. Physical Exam Physical Exam: General: Well appearing, NAD HEENT: EOMI, PERRLA Neck: Supple Cardiac: RRR no rubs gallops or murmurs Lungs: CTA no rhonchi wheezing or rales Abd: S NT ND BS positive : Deferred MSK: Full ROM. No obvious deformities Ext: No Edema cyanosis Skin: Warm, Dry Neuro: AOx3 No focal deficits. Psych: Normal Mood Results & Data Results & Data Vital Signs (Past 12 Hours) Vital Signs Temp Pulse Pulse Resp BP Pulse Ox O2 Del Method 04/01/25 11:35 Room Air 04/01/25 11:33 37.2 C 79 20 108/71 100 Room Air 04/01/25 09:16 70 04/01/25 08:06 36.7 C 76 18 92/57 L 96 Nasal Cannula 04/01/25 03:02 36.8 C 74 18 103/66 96 Room Air O2 Flow Rate 04/01/25 11:35 04/01/25 11:33 04/01/25 09:16 04/01/25 08:06 1 04/01/25 03:02
[2025-04-01] MEDS ORDERED: KETOROLAC TROMETHAMINE 15 MG/ML VIAL IV PRN (12:18)
--- NOTE | 2025-04-01 12:20 | Cardiology Consultation ---
Date of Consultation April 01, 2025 Assessment & Plan (1) Inflammatory autoimmune disorder: (2) Pleural effusion: (3) Pericardial effusion: (4) Pleurisy: Plan Patient admitted with worsening SOB/pleuritic chest pain and diffuse arthritic complaints. She has sought care at multiple facilities over the last 6 weeks for similar symptoms. Diagnosed with b/l pleural effusions and underwent several thoracentesis. No malignancy found on prior evaluation. Repeat thoracentesis done this morning. Await results. Small pericardial effusion noted without tamponade on echo today. ESR has been elevated CRP elevated Worsening anemia also noted with low iron. Symptoms and findings consistent with inflammatory condition/autoimmune disorder. Incidental small pericardial effusion noted on echo again this admission. Patient was to be taking colchicine as an outpatient per discharge papers from [place]. Restart colchicine 0.6 mg BID Started on methylprednisone and antibiotics Autoimmune and viral panels pending Rheumatology referral recommended. Await further test results which are pending. Case discussed with Dr. Stuart. Further recommendations pending his evaluation and review of test results. I spent a total of 60 minutes on the date of service in preparation, delivery, and documentation of the care provided to this patient, excluding any time spent in the performance of separately billed services. Leora Pierre PA-C Department of Cardiology, [facility] This chart was completed in part utilizing Speech Voice Recognition Software. Grammatical errors, random word insertions, pronoun errors, and incomplete sentences are an occasional consequence of this system due to software limitations, ambient noise, and hardware issues. Any formal questions or concerns about the content, text, or information contained within the body of this dictation should be directly addressed to the provider for clarification. Supervising Physician Co-Signing Physician Notes I have personally performed a history and physical examination on the patient. I have reviewed the advance practitioner's documentation, and I agree with, and take responsibility for the plan of care. 64-year-old female presents with bilateral pleural effusions and [id number] pericardial effusion. No evidence of tamponade physiology per echocardiogram. No indication for pericardiocentesis at this time. ECG demonstrates nonspecific T-wave abnormality without ST elevation or depression. Significantly elevated C-reactive protein and pleuritic discomfort suggestive of inflammatory process. Autoimmune/rheumatologic workup pending at this time. Infectious etiology seems less likely given duration of symptoms. Await final pathology/cytology regarding pleural fluid. Patient notes intermittent joint discomfort somewhat concerning for arthritis. Recommend outpatient rheumatologic evaluation. She has been started on methylprednisone with mild improvement. Would recommend gradual taper over 3 to 4 weeks. Continue colchicine 0.6 mg twice daily as tolerated for a minimum of 3 months. Repeat echocardiogram in 2 to 4 weeks as outpatient. Thank you for allowing me to participate in the care of your patient. Bandar Stuart DO, [facility] I spent a total of 40 minutes on the date of service in preparation, delivery, and documentation of the care provided to this patient, excluding any time spent in the performance of separately billed services. History of Present Illness Reason for Consultation: Pericardial effusion Requesting Physician: Romain Walker Attending Physician: Dr. Stuart History of Present Illness Patient is a 64 year old female with a recent complicated history, presenting to [facility] with complaints of worsening SOB, pleuritic chest pain. Patient was a very healthy individual, only taking lipid lowering therapy in the past with fenofibrate. In February 2025, patient began having diffuse/unusual symptoms. She has been evaluated at multiple hospitalist over the last month and attempted to summarize below: Pt was evaluated in the [place] ER on 02/27/25 for chest pain, r/o AL. AL was ruled out and was advised treatment for GERD. Pt had normal CMP, Troponin, normal cbcd with Hb 12.6, normal wbc. Xray Chest normal without pleural effusions. D dimer was not elevated. AL was ruled out. Due to recurrent symptoms, patient returned to the ER in [place] on 03/05/2025. She had CTA chest for evaluation of the chest pain and ongoing dyspnea on exertion. ESR was 39, CTA chest showed no evidence of PE. there was evidence of possible small nonspecific pericardial effusion, atelectatic changes without specific pulmonary abnormalities. Possible pericarditis discussed with the patient at that time and she was discharged home on naproxen and she did not require inpatient admission at that time. Patient went on Vacation to [place]. She had recurrent symptoms and was also admitted on 03/21/25 to 03/22/25 with cough, worsening sob for a month at [facility]. Admission Diagnosis : Acute diastolic CHF, shortness of breath, bilateral pleural effusion, elevated D-dimer, chronic bronchitis, chronic right shoulder pain. Her Hbg was low at 9.1 Electrolytes normal, BNP was 109 2, EKG showed normal sinus rhythm with nonspecific ST-T changes. During hospitalization, she was fund to have b/l pleural effusions. Diagnostic thoracentesis was performed, and 425 mL of fluid was removed and analyzed. She was treated with diuretics, specifically Lasix, to manage fluid overload, and her potassium levels were monitored and supplemented due to hypokalemia. Due to her symptoms she was started on colchicine for possible pericarditis. Pleural fluid cytology report reviewed dated 03/22/25- NEGATIVE FOR MALIGNANCY. - Reactive mesothelial cells, macrophages and lymphocytes. Patient said she was feeling better after starting colchicine but the last few days her symptoms once again worsened. Unable to lay flat due to orthopnea, SOB. Notes pleuritic chest pain, substernal. No fever or chills. No rashes. On arrival to the ER, her hbg has trended downward to 9.7 and now 8.6. No signs of acute GI bleed. Elevated WBC noted on arrival at 16.3. Platelet count elevated Blood cultures pending. ESR elevated at 108 D.Dimer elevated but Chest CTA was without PE Iron levels low, ferritin high CRP high at 18 HS troponin negative/normal Procalcitonin normal EKG demonstrating NSR at 90 bmp with anterolateral T wave inversions. Similar to past tracings CTA on admission demonstrating no PE, b/l pleural effusions and possible moderate pericardial effusion Echo ordered. She underwent left sided thoracentesis this morning. At time of consult, patient resting in bed. Daughters at bedside, one is a nurse here. She reports ongoing pleuritic chest pain with deep breaths. SOB has improved since thoracentesis. Orthopnea noted at night. No palpitations. No fevers. She notes ongoing neck pain/shoulder pain. Allergies Allergy/AdvReac Type Severity Reaction Status Date / Time tramadol Allergy Severe Vomiting/Le Unverified 03/31/25 17:25 thargic [id number]-[id number]-IkP Reductase AdvReac Unknown Unknown Unverified 03/31/25 17:25 Inhibitor Home Medications Medication Instructions Recorded Confirmed Type escitalopram oxalate 10 mg tablet 10 mg PO QAM 03/31/25 03/31/25 History fenofibrate nanocrystallized 145 145 mg PO QAM 03/31/25 03/31/25 History mg tablet furosemide 40 mg tablet 40 mg PO QAM 03/31/25 03/31/25 History multivitamin 1 tab PO QAM 03/31/25 03/31/25 History potassium chloride 20 mEq 20 meq PO BID 03/31/25 03/31/25 History tablet,extended release Patient History Medical History Pleural effusion Anemia Surgical History History of thoracentesis Social History Smoking Status: Never smoker Hx Alcohol Use: No Hx Substance Use: No Preferred Language: Swiss Communication Ability: Effective Stone Cutter Required: No Beliefs That Will Affect Care: None Current Living Situation: Alone Feels Safe at Home: Yes Assistive Devices: Glasses Review of Systems Review of Systems: All systems reviewed & are unremarkable except as noted in HPI & below Physical Exam Constitutional: WD/WN, vitals as above Neck: trachea midline, no thyromegaly Respiratory: normal respiratory effort, lungs clear to auscultation Cardiovascular: RRR, no murmur, no edema Gastrointestinal (Abdomen): normal bowel sounds, soft, nontender, no hepatosplenomegaly Musculoskeletal: no cyanosis or clubbing, extremities motor strength 5/5 Neurologic: PERRL, EOMI, accommodation nl, no face palsy, no dysarthria Results & Data Vital Signs (Past 12 Hours) Vital Signs Temp Pulse Pulse Resp BP Pulse Ox O2 Del Method 04/01/25 11:35 Room Air 04/01/25 11:33 37.2 C 79 20 108/71 100 Room Air 04/01/25 09:16 70 04/01/25 08:06 36.7 C 76 18 92/57 L 96 Nasal Cannula 04/01/25 03:02 36.8 C 74 18 103/66 96 Room Air O2 Flow Rate 04/01/25 11:35 04/01/25 11:33 04/01/25 09:16 04/01/25 08:06 1 04/01/25 03:02 Laboratory Results Cardiac Enzymes 03/31/25 03/31/25 04/01/25 Range/Units 15:03 15:04 06:03 AST 23 18 (13-39) U/L Lactate Dehydrogenase (86-244) U/L Troponin I High Sens 4.0 (0-14) pg/ml B-Natriuretic Peptide 125 H (0-100) pg/ml 04/01/25 Range/Units 10:34 AST (13-39) U/L Lactate Dehydrogenase 126 (86-244) U/L Troponin I High Sens (0-14) pg/ml B-Natriuretic Peptide (0-100) pg/ml Coagulation 03/31/25 03/31/25 Range/Units 15:03 15:04 PT 12.4 H (9.0-12.0) Seconds APTT 30 (21-31) Seconds B-Natriuretic Peptide 125 H (0-100) pg/ml CBC 03/31/25 04/01/25 Range/Units 15:03 06:03 WBC 16.13 H 11.62 H (4.8-10.8) K/ul RBC 3.76 L 3.24 L (4.20-5.40) M/uL Hgb 9.7 L 8.6 L (12.0-16.0) g/dl Hct 30.4 L 26.1 L (37.0-47.0) % Plt Count 583 H 431 H (130-400) K/uL Neut # (Auto) 13.47 H 9.57 H (1.40-6.50) K/uL Lymph # (Auto) 1.72 1.29 (1.20-3.40) K/uL Love # (Auto) 0.82 H 0.64 H (0.11-0.59) K/uL Eos # (Auto) 0.01 0.03 (0.00-0.50) K/uL Baso # (Auto) 0.04 0.03 (0.00-0.20) K/uL Comprehensive Metabolic Panel 03/31/25 04/01/25 04/01/25 Range/Units 15:03 06:03 10:34 Sodium 134 L 136 (136-145) mmol/L Potassium 3.9 4.0 (3.5-5.1) mmol/L Chloride 98 101 (98-107) mmol/L Carbon Dioxide 25 28 (21-32) mmol/L BUN 16 13 (6-23) mg/dl Creatinine 0.67 0.69 (0.6-1.2) mg/dl Glucose 98 98 (70-99(Fasting)) mg/dl Calcium 9.0 8.9 (8.6-10.3) mg/dl AST 23 18 (13-39) U/L ALT 33 25 (7-52) U/L Alkaline Phosphatase 79 75 (34-104) U/L Total Protein 7.4 6.2 6.5 (6.0-8.3) gm/dl Albumin 3.3 L 2.9 L 3.1 L (3.4-5.0) gm/dl Intake and Output 03/31/25 04/01/25 04/01/25 22:59 06:59 14:59 Intake Total 900 / 1250 350 / 1250 100 / 100 Balance 900 / 1250 350 / 1250 100 / 100 Intake: IV 800 / 900 100 / 900 100 / 100 Acetaminophen 1,000 mg In 100 100 / 100 ml @ 400 mls/hr IV NOW STA Rx#: [id number] Ampicillin/Sulbactam Sod 3,000 100 / 200 100 / 200 100 / 100 mg In 100 ml @ 200 mls/hr IV Q6H JETT Rx#:[id number] Piperacillin/Tazobactam 4.5 gm 100 / 100 In 100 ml @ 200 mls/hr IV NOW ONE Rx#:[id number] Sodium Chloride 0.9% 500 ml @ 500 / 500 999 mls/hr IV .Q31M ONE Rx#: [id number] Oral 100 / 350 250 / 350 Other: Weight 61.1 kg 61.1 kg Weight Measurement Method Standing Scale Standing Scale Diagnostic Findings Telemetry reviewed: -NSR in the 70-80's EKG - NSR with non specific ST/T wave abnormality Chest CTA 03/31/25 16:04 CT pulmonary angiogram with IV contrast History: Chest pain COMPARISON: None TECHNIQUE: CT angiography of the chest was performed without IV contrast followed by IV contrast, including 3D post processing CTA image reconstruction. Dose reduction techniques were achieved by using automatic exposure control and/or adjustment of mA and/or kV according to patient size and/or use of iterative reconstruction technique. FINDINGS: Diagnostic quality: Adequate There is no evidence for pulmonary embolism. The heart is not enlarged. Moderate coronary calcification. There is a moderate pericardial effusion. There are no abnormally enlarged hilar or mediastinal lymph nodes. The central tracheobronchial tree is clear. There is a small left and a trace right pleural effusion. Compressive atelectasis of the left lower lobe. Limited visualized upper abdomen. No destructive osseous changes are seen. IMPRESSION: No evidence for pulmonary embolism. Moderate pericardial effusion. Consider pericarditis. Small left and trace right pleural effusion. Electronically signed by Salvatore Lauren 03-31-2025 4:55 PM Head CTA 03/31/25 16:[address] without contrast CT angiogram of the neck CT angiogram of the brain with contrast Provided History: Headache Comparison: None Technique: HEAD CT: Using multidetector thin collimation helical acquisition technique, axial, coronal and sagittal CT images from the skull base to the vertex were obtained without intravenous contrast. HEAD and NECK CTA: During rapid bolus intravenous injection of nonionic contrast material, axial images were obtained using thin collimation multidetector helical technique from the base of the neck through the of vertex of the head. This CT angiogram data was reconstructed at thin intervals with mild overlap. 3D reconstructions were obtained. The axial source images, multiplanar reformations, 3D reconstructions in both maximum intensity projection display and volume rendered models were reviewed. Dose reduction techniques were achieved by using automatic exposure control and/or adjustment of mA and/or kV according to patient size and/or use of iterative reconstruction technique. Findings: Head CT: There is no intracranial hemorrhage, mass effect, or midline shift. Frey/white matter differentiation in both cerebral hemispheres is preserved. Ventricles are proportionate to the cerebral sulci. Head CTA demonstrates no aneurysm or stenosis of the major intracranial arteries. Neck CTA demonstrates no stenosis of the major cervical arteries. The origins of the great vessels from the aortic arch are patent. No mass is noted within the visualized portions of the cervical soft tissues or lung apices. Left pleural effusion. Impression: 1. Head CTA demonstrates no aneurysm or stenosis of the major intracranial arteries, 2. Neck CTA demonstrates no stenosis of the major cervical arteries. 3. No intracranial hemorrhage on the noncontrast head CT. Electronically signed by Salvatore Lauren 03-31-2025 4:53 PM Neck CTA 03/31/25 16:[address] without contrast CT angiogram of the neck CT angiogram of the brain with contrast Provided History: Headache Comparison: None Technique: HEAD CT: Using multidetector thin collimation helical acquisition technique, axial, coronal and sagittal CT images from the skull base to the vertex were obtained without intravenous contrast. HEAD and NECK CTA: During rapid bolus intravenous injection of nonionic contrast material, axial images were obtained using thin collimation multidetector helical technique from the base of the neck through the of vertex of the head. This CT angiogram data was reconstructed at thin intervals with mild overlap. 3D reconstructions were obtained. The axial source images, multiplanar reformations, 3D reconstructions in both maximum intensity projection display and volume rendered models were reviewed. Dose reduction techniques were achieved by using automatic exposure control and/or adjustment of mA and/or kV according to patient size and/or use of iterative reconstruction technique. Findings: Head CT: There is no intracranial hemorrhage, mass effect, or midline shift. Frey/white matter differentiation in both cerebral hemispheres is preserved. Ventricles are proportionate to the cerebral sulci. Head CTA demonstrates no aneurysm or stenosis of the major intracranial arteries. Neck CTA demonstrates no stenosis of the major cervical arteries. The origins of the great vessels from the aortic arch are patent. No mass is noted within the visualized portions of the cervical soft tissues or lung apices. Left pleural effusion. Impression: 1. Head CTA demonstrates no aneurysm or stenosis of the major intracranial arteries, 2. Neck CTA demonstrates no stenosis of the major cervical arteries. 3. No intracranial hemorrhage on the noncontrast head CT. Electronically signed by Salvatore Lauren 03-31-2025 4:53 PM Abdomen/Pelvis CT 03/31/25 16:20 EXAMINATION: CT of the abdomen and pelvis performed after the administration of IV contrast TECHNIQUE: Helical CT images from the lung bases through the symphysis pubis were obtained with contrast. Coronal and sagittal reformatted images were generated at a workstation for further assessment. Dose reduction techniques were achieved by using automatic exposure control and/or adjustment of mA and/or kV according to patient size and/or use of iterative reconstruction technique. COMPARISON: None HISTORY: Abdominal pain FINDINGS: Liver: No suspicious liver lesions. Portal veins appear patent. Gallbladder: No gallstones. No evidence of acute cholecystitis. Spleen: Normal size. Pancreas: No suspicious pancreatic lesions. The pancreatic duct is not dilated. Adrenal glands: No adrenal nodules. Kidneys: No hydronephrosis or obstructing renal stones. Bladder / Pelvic organs: No masses. Hysterectomy. Trace fluid in the pelvis is nonspecific, likely related to volume status, given the pleural effusions.. Bowel: No bowel obstruction. No abnormal bowel wall thickening. The appendix is unremarkable. Lymph nodes: No retroperitoneal, mesenteric, or pelvic lymphadenopathy. Peritoneum / Retroperitoneum: Trace ascites in the right upper quadrant. Vessels: No infrarenal aortic aneurysm. Bones and soft tissues: No suspicious lesion in the bones. IMPRESSION: No acute process. Trace ascites. Electronically signed by Salvatore Lauren 03-31-2025 5:11 PM Chest X-Ray 04/01/25 09:46 SINGLE VIEW CHEST CLINICAL HISTORY: Status post left thoracentesis FINDINGS: An AP, portable, upright chest radiograph is compared to chest x-ray and chest CT dated 03/31/2025. The cardiac silhouette is enlarged, some of which is likely related to a pericardial effusion when compared to yesterday's chest CT. There is mild atherosclerotic calcification of the thoracic aorta. There are left larger than right pleural effusions with left basilar consolidation. A focus of pleural-based gas at the left lung base may be related to the procedure. No pneumothorax is clearly seen. The skeletal structures are osteopenic. The bony thorax is grossly intact. IMPRESSION: 1. The cardiac silhouette is enlarged. This is likely related to a pericardial effusion when compared to yesterday's chest CT. 2. Left larger than right pleural effusions with left basilar consolidation. 3. A focus of pleural-based gas at the left lung base is likely related to the thoracentesis. No pneumothorax is clearly seen. Attention at follow-up is recommended. ACT 112: Negative or not required by law Electronically signed by: Moose Mobley M.D. 04/01/2025 10:19 AM prior outside data reviewed: Echo March 02, 2025 at reviewed - Interpretation Summary The examination is adequate to evaluate the referral indication. The LV wall thickness is normal. The left ventricular wall motion is normal. The qualitative LV ejection fraction is 55-59% (normal). The left ventricular diastolic function is mildly abnormal (grade I). No significant valvular disease is present. There is no evidence of pulmonary hypertension. No pericardial effusion is noted. There is increased tissue density in the region of the pericardium suggesting pericardial fat. There are no previous studies available for direct comparison. PG Care Time/CCT Total # of Minutes Spent Total Time Spent with Patient: Total time spent is greater than 50% in coordination of care (as documented) at patient's floor/unit and/or counseling patient: 60 minutes Coding Level of Care Code 22046 OFFICE CONSULT LVL Diagnoses Inflammatory autoimmune disorder D89.89 Pleural effusion J90 Pericardial effusion I31.39 Pleurisy R09.1
--- NOTE | 2025-04-01 12:43 | Electrocardiogram Report ---
Test Reason : Blood Pressure : */* mmHG Vent. Rate : 90 BPM Atrial Rate : 90 BPM P-R Int : 128 ms QRS Dur : 82 ms QT Int : 352 ms P-R-T Axes : -17 -13 -34 degrees QTcB Int : 430 ms Normal sinus rhythm Inferior infarct , age undetermined Nonspecific T wave abnormality Abnormal ECG No previous ECGs available Confirmed by Johnny Alonzo ([id number]) on 04/01/2025 12:42:47 PM Referred By: Confirmed By: Johnny Alonzo
[2025-04-01] MEDS: IRON SUCROSE 200 MG in SODIUM CHLORIDE 0.9% 100 ML IV ONE (13:57)
[2025-04-01] MEDS: COLCHICINE 0.6 MG TAB PO SCH (14:44)
[2025-04-02 06:07] LABS: Hematocrit (blood only) 25.7 % (37.0-47.0); Hemoglobin 8.2 g/dl (12.0-16.0); Mean Corpuscular Hemoglobin 25.9 pg (25.0-34.0); Mean Corpuscular Volume 81.1 fL (80.0-100.0); Platelet Count 411 K/uL (130-400); RDW Standard Deviation 40.8 fL (36.4-46.3); Red Blood Count 3.17 M/uL (4.20-5.40); White Blood Count 11.66 K/ul (4.8-10.8)
[2025-04-02 06:24] LABS: Anion Gap 6.0 (3-11); Blood Urea Nitrogen 9.0 mg/dl (6-23); Calcium 9.3 mg/dl (8.6-10.3); Carbon Dioxide 26.0 mmol/L (21-32); Chloride 107.0 mmol/L (98-107); Creatinine Clr Calc Pharmacy 89.5 ml/min; Glucose 119.0 mg/dl (70-99(Fasting)); Magnesium 2.1 mg/dl (1.7-2.4); Potassium 4.2 mmol/L (3.5-5.1); Sodium 139.0 mmol/L (136-145)
[2025-04-02 07:45] VITALS: BP 120/70; PULSE 82; RESP 17; TEMP 97.3; O2SAT 96
--- NOTE | 2025-04-02 08:29 | Pulmonology Progress Note ---
Date of Service April 02, 2025 Assessment & Plan (1) Pleural effusion: (2) Acute pericardial effusion: (3) GIBSON (dyspnea on exertion): (4) Chest pain: Plan Patient is a 64-year-old female with minimal past medical history. The patient presented to the hospital on 03/31/2025 with chest pain and orthopnea. The patient has been having progressive symptoms since December of this year. She has had progressive dyspnea, orthopnea, and episodes of chest pain that were severe enough that she would present to the hospital due to concern for DE. The patient was evaluated at hospital in [place] and early March, during that hospitalization she was found to have a pleural effusion and a thoracentesis was done (left thoracentesis 03/22/2025: 450 cc of yellow and cloudy, WBC 1519 with 24% lymphocytes, negative cultures, negative cytology, cytology only commented reactive mesothelial cells, macrophages and lymphocytes. Protein 4.8, LDH 218, glucose 130, cholesterol 90). The patient did not have additional workup performed as she came back to [place]. During this presentation the patient was found to have a D-dimer of 20,000, ESR greater than 100, CRP 18.5. CT angio of the chest showed bilateral pleural effusions, left greater than right, moderate pericardial effusion. Some adjacent atelectasis next to the effusions and some mild GGO's in the posterior aspect. No significant lymphadenopathy. Pulmonary was consulted for pleural effusion. Bilateral pleural effusion, left greater than right; Moderate pericardial effusion -Patient endorses swelling of bilateral phalanges and rash on her leg. Grandmother history of RA. Symptoms concerning for autoimmune disease. -Patient has had two thoracentesis in past month. Last on Mar in [place]. Reportedly negative. Repeat 04/01 is exudative. Studies pending. -Rheumatology and cardiology are both consulted. Patient has Rheum appointment on 04/03/2025. -Change Unasyn to Augmentin. Plan for 10 day course. -Started on Methylprednisolone. Would continue daily for at least 2 weeks. Will follow rheum recs. Thank you for allowing us to participate in this patient's care. Please feel free to reach out with questions or concerns. 38 minutes is the time spent reviewing the chart, obtaining history, performing the physical exam, and updating the patient, bedside nurse, and primary team. Admission and Anticipated Discharge Date Admission Date: March 31, 2025 Supervising Physician Co-Signing Physician Notes I saw and evaluated the patient with AMINTA Estes, and agree with findings and plan as documented in the note. Patient seen and examined at bedside. Patient's daughter as well as grandkids were also in the room Patient says that she is feeling better. Still complains of some chest pressure which is retrosternal and going to the back. Patient has been having issues with subjective fever and uneasiness for a while She had a thoracentesis done back in [place] for 460 mL fluid removed. Cytology was negative at that time. It was also lymphocytic with 22% lymphocytes. She denied any nausea or vomiting No dizziness No unusual headache or blurry vision Does have Raynaud's Constitutional: No acute distress HEENT: EOMI, PERRLA Respiratory system: Decreased air entry bilaterally, no wheeze, no rhonchi, no crackles CVS: S1-S2 positive, no murmurs or gallops Abdomen: Soft, nontender, nondistended, positive bowel sounds x4 Extremities: +2 pulses bilaterally radialis/ dorsalis pedis, no cyanosis, no edema Neuro: Awake alert oriented x3 Psych: Normal mood and affect G/U: No Blake Plan: CTA chest 03/31/2025 personally reviewed: Motion degraded study Small left-sided pleural effusion Minimal right-sided pleural effusion Compressive atelectasis of the left lower lobe Small pericardial effusion No significant mediastinal lymphadenopathy 2D echo 04/01/2025: EF 60-65%, small circumferential pericardial effusion with m oderate organization Pleural fluid was exudative and lymphocytic. No history of incarceration, no night sweats, no history of exposure to tuberculosis. No pets at home. Given elevated ESR, CRP as well as pericardial and bilateral pleural effusion, the probability of some autoimmune process causing effusion is high There is strong family history of rheumatoid arthritis. Patient also has Raynaud's. Autoimmune workup has been ordered, patient is also supposed to follow-up with rheumatology tomorrow. Procalcitonin was negative. Would recommend antibiotics for 7 days. Prednisone 40 mg for 3 days followed by 20 mg for 3 days followed by 10 mg for 3 days. Outpatient pulmonary follow-up. Follow-up cytology of the fluid. Cardiology note reviewed All questions and queries of the patient as well as patient's daughter who is RN were answered in depth I spent more than 50 minutes looking in the chart, images, discussing with outgoing physician, discussing the plan of care with the patient, RN as well as primary team Please note the above document was generated using voice recognition software. It may contain grammatical, syntax or spelling errors.Any formal questions or concerns about the content, text or information contained within the body of this dictation should be directly addressed to the provider for clarification. Subjective "I am feeling better." Patient subjectively feels her breathing is better. She notes some persistent green phlegm with coughing. Pleural fluid analysis from left thoracentesis on 04/01/2025 showed exudative effusion by protein and LDH ratio. Cultures and cytology pending. Patient is 99% on room air. Autoimmune panel pending. Review of Systems 2 Review of Systems: All systems reviewed & are unremarkable except as noted in HPI & below Physical Exam 2 Physical Exam: VITALS: Reviewed. WEIGHT/BMI reviewed. GEN: Healthy appearing, well-developed, NAD. PSYCH: Good Judgment. AOx3. Normal memory, mood, and affect. HEENT -Head: NC/AT; -Eyes: PERRL, EOMI. No discharge or redn ess; -Ears: External ears are normal. -Nose: Normal nares. NECK: Supple, with no masses. CV: RRR, no m/r/g. LUNGS: Clear in b/l upper lobes and and right lower lobe with diminishment in the left lower lobe. Chest rise symmetrical. Breathing non labored. ABD: Soft, NT/ND, NBS, no masses or organomegaly. : N/A SKIN: Warm, well perfused. No skin rashes or abnormal lesions. MSK: No deformities, Normal gait. EXT: No clubbing, cyanosis, or edema. NEURO: Ambulating with no limitations. Normal muscle strength and tone. No focal deficits. Results & Data Results & Data Vital Signs (Past 12 Hours) Vital Signs Temp Pulse Pulse Resp BP Pulse Ox O2 Del Method 04/02/25 07:44 36.3 C L 82 17 120/70 96 Room Air 04/02/25 07:32 Room Air 04/02/25 07:13 64 04/02/25 03:50 36.6 C 66 18 95/53 L 97 Room Air 04/01/25 23:03 36.8 C 72 18 100/58 L 95 Room Air 04/01/25 21:44 72 Laboratory Results 04/02/25 05:39 04/02/25 05:39 Abnormal Lab Results 04/01/25 04/01/25 04/02/25 09:55 10:34 05:39 WBC 11.66 H RBC 3.17 L Hgb 8.2 L Hct 25.7 L MCV 81.1 MCH 25.9 MCHC 31.9 L RDW Std Deviation 40.8 RDW Coeff of Humphrey 13.7 Plt Count 411 H MPV 9.5 Sodium 139 Potassium 4.2 Chloride 107 Carbon Dioxide 26 Anion Gap 6 BUN 9 Creatinine 0.58 L Est Cr Clr Drug Dosing 89.5 eGFR 100.99 BUN/Creatinine Ratio 15.5 Glucose 119 H Calcium 9.3 Phosphorus 2.9 Magnesium 2.1 Total Bilirubin 0.2 Lactate Dehydrogenase 126 Total Protein 6.5 Albumin 3.1 L Fluid Neutrophils % 37 Fluid Lymphocytes % 43 Fluid Basophils % 2 Fluid Meso/Macro/Castro % 18 Fluid Comment Pleural Fluid Source Left Lung Pleural Color Yellow Pleural Appearance Hazy Pleural pH 7.52 H Pleural WBC (Auto) 1806 Pleural RBC (Auto) < 2000 Pleural Total Protein 4.4 Pleural LDH 97 Pleural Glucose 133 Pleural Amylase 16 Stool Occult Bld Scrn 04/02/25 Unknown WBC RBC Hgb Hct MCV MCH MCHC RDW Std Deviation RDW Coeff of Humphrey Plt Count MPV Sodium Potassium Chloride Carbon Dioxide Anion Gap BUN Creatinine Est Cr Clr Drug Dosing eGFR BUN/Creatinine Ratio Glucose Calcium Phosphorus Magnesium Total Bilirubin Lactate Dehydrogenase Total Protein Albumin Fluid Neutrophils % Fluid Lymphocytes % Fluid Basophils % Fluid Meso/Macro/Castro % Fluid Comment Pleural Fluid Source Pleural Color Pleural Appearance Pleural pH Pleural WBC (Auto) Pleural RBC (Auto) Pleural Total Protein Pleural LDH Pleural Glucose Pleural Amylase Stool Occult Bld Scrn Negative Diagnostic Findings Chest X-Ray 04/01/25 09:46 SINGLE VIEW CHEST CLINICAL HISTORY: Status post left thoracentesis FINDINGS: An AP, portable, upright chest radiograph is compared to chest x-ray and chest CT dated 03/31/2025. The cardiac silhouette is enlarged, some of which is likely related to a pericardial effusion when compared to yesterday's chest CT. There is mild atherosclerotic calcification of the thoracic aorta. There are left larger than right pleural effusions with left basilar consolidation. A focus of pleural-based gas at the left lung base may be related to the procedure. No pneumothorax is clearly seen. The skeletal structures are osteopenic. The bony thorax is grossly intact. IMPRESSION: 1. The cardiac silhouette is enlarged. This is likely related to a pericardial effusion when compared to yesterday's chest CT. 2. Left larger than right pleural effusions with left basilar consolidation. 3. A focus of pleural-based gas at the left lung base is likely related to the thoracentesis. No pneumothorax is clearly seen. Attention at follow-up is recommended. ACT 112: Negative or not required by law. Electronically signed by: Moose Mobley M.D. 04/01/2025 10:19 AM PG Care Time/CCT Total # of Minutes Spent Total Time Spent with Patient: Total time spent is greater than 50% in coordination of care (as documented) at patient's floor/unit and/or counseling patient: Coding Level of Care Code 35542 SUB INP/OBS CARE 3/50MIN Diagnoses Pleural effusion J90 Acute pericardial effusion I30.9 GIBSON (dyspnea on exertion) R06.09 Chest pain R07.9
[2025-04-02] MEDS: IRON SUCROSE 400 MG in SODIUM CHLORIDE 0.9% 250 ML IV ONE (09:17)
--- NOTE | 2025-04-02 09:19 | Cardiology Progress Note ---
Date of Service April 02, 2025 Assessment & Plan (1) Inflammatory autoimmune disorder: (2) Pleural effusion: (3) Pericardial effusion: (4) Pleurisy: Plan Patient admitted with worsening SOB/pleuritic chest pain and diffuse arthritic complaints. She has sought care at multiple facilities over the last 6 weeks for similar symptoms. Diagnosed with b/l pleural effusions and underwent several thoracentesis. No malignancy found on prior evaluation. Repeat thoracentesis done this morning. Await results. Small pericardial effusion noted without tamponade on echo today. ESR has been elevated CRP elevated Worsening anemia also noted with low iron. Symptoms and findings consistent with inflammatory condition/autoimmune disorder. Incidental small pericardial effusion noted on echo again this admission. Patient was to be taking colchicine as an outpatient per discharge papers from [place]. Restart colchicine 0.6 mg BID Started on methylprednisone and antibiotics Autoimmune and viral panels pending Rheumatology referral recommended. 04/02/2025: -patient reports improvement in her breathing, and reduction in chest discomfort. -BP stable. -No acute events on telemetry. -Continue Colchicine 0.6mg BID -Ongoing treatment with methylprednisone and antibiotics as per primary team -Currently receiving iron infusion. -Autoimmune and viral labs remain pending. Patient is scheduled to seen Rheumatology OP tomorrow morning. Will Discuss case with Dr. Sanchez and consideration for discharge today. Case has been discussed with Dr. Sanchez. Further recommendations regarding plan of care as per his assessment. I spent a total of 30 minutes on the date of service in preparation, delivery, documentation of the care provided to the patient excluding any time spent in the performance of separately billed services. AMINTA Kamara [facility] Cardiology [facility] Admission and Anticipated Discharge Date Admission Date: March 31, 2025 Supervising Physician Co-Signing Physician Notes Patient seen and examined. Past medical history, surgical history, social history and family history have been reviewed. The medical record and all the above studies have been reviewed. Case DW SAMMY including management. Small pericardial effusion with no cardiac tamponade Pleural effusion - s/p L thoracentesis Continue Colchicine 0.6mg BID, methylprednisone and antibiotics as per primary team Autoimmune and viral labs remain pending. F/U with Rheumatology as OP tomorrow morning. Stable from cardiology standpoint for discharge f/u with cardiology as OP Repeat ECHO as OP Subjective 04/02/2025: Patient seen and examined in follow up today. Feeling improved in comparison to yesterday. reports chest discomfort with deep inspiration; however, does report that she has slept better last night then she has in a while. Labs, vitals, diagnostics, telemetry and documentation reviewed. Telemetry reviewed showing SR 60-70's H/H 8.2/25.7. Longstanding hx of iron deficiency anemia. Currently receiving iron infusion. Review of Systems Review of Systems: All systems reviewed & are unremarkable except as noted in HPI & below Physical Exam Constitutional: well developed and well nourished; no acute distress and not ill appearing Neck: normal visual inspection and trachea midline Respiratory: normal respiratory effort; no labored breathing and no cough Auscultation: + diminished lung sounds (bases ); no crackles, no rales, no rhonchi and no wheezes Cardiovascular: Rate/Rhythm: regular rate and regular rhythm Heart Sounds: normal S1 and normal S2; no murmur Vessels: dorsalis pedis pulses present; no JVD Extremities: no edema Skin: no rashes, warm and dry Psychiatric: A+Ox3, euthymic affect Results & Data Vital Signs (Past 12 Hours) Vital Signs Temp Pulse Pulse Resp BP Pulse Ox O2 Del Method 04/02/25 07:44 36.3 C L 82 17 120/70 96 Room Air 04/02/25 07:32 Room Air 04/02/25 07:13 64 04/02/25 03:50 36.6 C 66 18 95/53 L 97 Room Air 04/01/25 23:03 36.8 C 72 18 100/58 L 95 Room Air 04/01/25 21:44 72 Laboratory Results Cardiac Enzymes 04/01/25 Range/Units 10:34 Lactate Dehydrogenase 126 (86-244) U/L CBC 04/02/25 Range/Units 05:39 WBC 11.66 H (4.8-10.8) K/ul RBC 3.17 L (4.20-5.40) M/uL Hgb 8.2 L (12.0-16.0) g/dl Hct 25.7 L (37.0-47.0) % Plt Count 411 H (130-400) K/uL Comprehensive Metabolic Panel 04/01/25 04/02/25 Range/Units 10:34 05:39 Sodium 139 (136-145) mmol/L Potassium 4.2 (3.5-5.1) mmol/L Chloride 107 (98-107) mmol/L Carbon Dioxide 26 (21-32) mmol/L BUN 9 (6-23) mg/dl Creatinine 0.58 L (0.6-1.2) mg/dl Glucose 119 H (70-99(Fasting)) mg/dl Calcium 9.3 (8.6-10.3) mg/dl Total Protein 6.5 (6.0-8.3) gm/dl Albumin 3.1 L (3.4-5.0) gm/dl Intake and Output 04/01/25 04/02/25 04/02/25 22:59 06:59 14:59 Intake Total 550 / 1969 850 / 1969 100 / 100 Balance / 1969 / 1969 100 / 100 Intake: IV 200 / 510 100 / 510 100 / 100 Ampicillin/Sulbactam Sod 3,000 200 / 400 100 / 400 100 / 100 mg In 100 ml @ 200 mls/hr IV Q6H [facility] Rx#:[id number] Oral 350 / 1460 750 / 1460 Other: Weight 66.1 kg Weight Measurement Method Built in [facility] PG Care Time/CCT Total # of Minutes Spent Total Time Spent with Patient: Total time spent is greater than 50% in coordination of care (as documented) at patient's floor/unit and/or counseling patient: Coding [place] [address] SUB INP/OBS CARE 3/50MIN Patient Type Established Diagnoses Inflammatory autoimmune disorder D89.89 Pleural effusion J90 Pericardial effusion I31.39 Pleurisy R09.1 Time Spent (min) 30
--- NOTE | 2025-04-02 14:11 | Discharge Summary ---
Date of Service April 02, 2025 Admission HPI Per Admitting Provider Ms. Ford is a pleasant 64F with complicated recent PMH who presents with SOB, chest pain, joint pain, fatigue She has had multiple admissions at different hospitals beginning in february for chest pain, SOB. She was admitted at [facility] and had a CT chest 03/05 was neg for PE but did show small pericardial effusion. She was discharged and went on vacation to [place]. There, she developed worsening SOB and was admitted on 03/[address] [facility] in [place]. She was found to have b/l pleural effusions. She was diagnosed with acute HFpEF and started on lasix. She had a thoracentesis. Pleural fluid analysis was not available on EMR. She saw her PCP on 03/29 who recommended she follow up with cardio, pulm and rheumatology. She presents today because she is unable to tolerate the SOB. Her chest pain is substernal radiating to the left and right. She states all of these symptoms began at the same time in february. before that, she denies having any medical issues other than HLD. Chest pain is not exertional. nothing makes it better or worse. no history of CAD or any heart disease prior to february. Denies history of cancer or autoimmune disease. Prior to onset of symptoms, she was just taking a fibrate for HLD. ED vitals stable. Per last PCP note, SBP was in the 90s CT chest showing small L and trace R pleural effusions, moderate pericardial effusion Admission Exam Per Admitting Provider Vitals and labs reviewed General: Well appearing, NAD HEENT: EOMI, PERRLA Neck: Supple Cardiac: RRR no rubs gallops or murmurs Lungs: CTA no rhonchi wheezing or rales Abd: S NT ND BS positive : Deffered MSK: Full ROM. No obvious deformities Ext: No Edema cyanosis Skin: Warm, Dry Neuro: AOx3 No focal deficits. Psych: Normal Mood Principal Diagnosis Pericardial effusion Chest discomfort/pain Bilateral Pleural effusions L>R Rule out pneumonia Elevated D-dimer Anemia Rule out autoimmune disease Discharge Exam General: Well appearing, NAD HEENT: EOMI, PERRLA Neck: Supple Cardiac: RRR no rubs gallops or murmurs Lungs: CTA no rhonchi wheezing or rales Abd: S NT ND BS positive : Deferred MSK: Full ROM. No obvious deformities Ext: No Edema cyanosis Skin: Warm, Dry Neuro: AOx3 No focal deficits. Psych: Normal Mood Discharge Data Allergies Allergy/AdvReac Type Severity Reaction Status Date / Time tramadol Allergy Severe Vomiting/Le Unverified 03/31/25 17:25 thargic Ebjcjpc-[id number]-YoY Reductase AdvReac Unknown Unknown Unverified 03/31/25 17:25 Inhibitor Consultations 03/31/25 16:49 ED Decision to Admit Stat 03/31/25 20:18 Consult Cardiology Routine Consult Pulmonology Routine Ordered Studies 03/31/25 16:04 CT angio chest PE protocol Stat 03/31/25 16:08 CT angio head wo/w Stat CT angio neck with con Stat 03/31/25 16:20 CT abd pelvis IV con only Stat 04/01/25 08:46 US point of care ultrasound Urgent Hospital Course (1) Pericardial effusion: 64-year-old lady with PMH of HLD, diaphragmatic hernia, allergic rhinitis, chronic sinusitis, pleural effusion on right, pericardial effusion, chronic constipation, vertigo, headache presents to the hospital 03/31 with complaint of shortness of breath, chest pain, joint pain, fatigue. Of note, she had multiple admissions at different hospital beginning end of December or early February for chest pain, shortness of breath. She reports having chest pain and shortness of breath all along with occasional flares leading her to go to hospital. Towards the February end, she was noted to have small pericardial effusion when she was admitted at [facility]. She then went on a vacation to [place] where she developed again worsening shortness of breath and chest pain and was admitted on 04/[address] [facility] in [place] where she was noted to have bilateral pleural effusion/diagnosed with acute HFpEF/started on Lasix/had thoracentesis on the left which was negative for bacterial growth and malignancy/recommended rheumatology cardiology and pulmonology follow-up. She was managed for the following: Pericardial effusion Chest discomfort/pain: Troponin WNL. likely non cardiac chest pain Admitting CTA chest negative for PE, positive for moderate pericardial effusion, +ve for small left and trace right pleural effusion. TTE on 03/02 normal EF and no pericardial effusion per report. Small pericardial effusion was noted at echo 03/05 No history of pericarditis or autoimmune disease. Pt denies fall/trauma. CTAP neg for malignancy. TSH WNL. CPK wnl. Etiology unclear and differential is broad but suspect autoimmune disease Inflammatory markers greatly elevated, ESR 108, CRP 18.47 Anaplasma and Babesia smear negative, Lyme screen negative. Viral panel negative. Autoimmune panel pending. Discussed with cardiology, jarrod for discharge on colchicine, follow-up with cardiology closely upon discharge. Patient reports good improvement in her chest discomfort and shortness of breath after steroid and colchicine. Still has some chest discomfort per patient but reports sleeping very well last night in several weeks. Bilateral Pleural effusions L>R Rule out pneumonia Elevated D-dimer S/p 450cc drained at OSH in [place]. no bacterial growth and malignancy noted. CTA here showing small/trace b/l effusions Significant leukocytosis at presentation Patient reports daily cough since the beginning of symptoms with occasional greenish sputum. Doubtful bacterial given her [facility] presentation and findings of non toxic appearance. Procal neg. Likely same etiology as is causing her pericardial effusion, autoimmune Given her atypical presentation, elevated inflammatory markers and leukocytosis, Antibiotic was started. Discussed with pulmonology, plan to treat with 10 days of antibiotic, follow-up with pulm upon outpatient. Patient to follow-up on the pleural fluid studies/pathology with her pulmonology and PCP office after discharge. Pulm evaled, Status post left thoracentesis, 160 mL of fluid obtained, follow studies and culture. d/w with rheumatology, recs is solu - M daily and monitor for clinical improvement, f/u w/ rheum on Tues AM (already scheduled). Patient reported symptom improvement on Solu-Medrol. Anemia No s/s acute blood loss Outpatient chart review with Hb ranging from 13.7 in 2005 with a gradual drop over the course of several years to the latest one of 11.3 on 03/29/2025. Admitting hemoglobin of 9.7, iron studies suggestive of iron deficiency anemia, vitamin B12 and folate levels WNL. MCV low normal. Patient reports her last colonoscopy was about 2 years ago and she follows every 5 years for colonoscopy denies any history of cancer. Suspect anemia of chronic disease and iron deficiency. negative fobt. iron transfusion on 04/01 and 04/02. To p.o. iron on discharge. History of HFpEF Recently diagnosed in february BNP minimally elevated but no signs of volume overload Hold home lasix for nowUntil further cardiology evaluation as an outpatient. Patient does not look congested on exam. DVT prophylaxis: Heparin subcu Full code Patient is being discharged with following instructions at the point of discharge: Follow-up with your primary care physician within a week time and likely you will need labs CBC/CMP/magnesium/phosphorus. You were evaluated for pleural effusion and pericardial effusion. There is strong suspicion of underlying autoimmune etiology. Pulmonology and cardiology evaluated you while inpatient. Follow-up with pulm in 2 weeks and cardiology in 1 to 2 weeks. You will need repeat ECHO in 1-2 weeks. You have been started on colchicine, likely you will need for at least 2 months per cardiology recommendation. You will be discharged with 1 month worth of colchicine, follow-up with cardiology for ongoing evaluation/prescription. You will be discharged on antibiotic to complete the course for possible lung infection. Also you are being discharged on steroid for concern of underlying autoimmune condition, take Protonix daily while on steroid. You are also noted to have iron deficiency anemia, you received iron transfusion on 04/01 and 04/02. You will be discharged on iron supplement. You will need repeat iron studies in about 2 to 3 months time. Follow-up with rheumatology tomorrow morning and further discussion regarding steroid course and future plan of care. Follow up on autoimmune tests ordered while inpatient in coordination with your rheumatology or PCP office. Take your medications as prescribed. Please make sure that you are able to get your medications today by calling your pharmacy before you leave the hospital so that your treatment continuity is not broken. Home Health Attestation I certify that this patient is under my care and that I, or a physicians assistant professor of forestry working with me, had a face to-face encounter that meets the home health [id number] encounter requirements with this patient. The encounter with the patient was in whole, or in part, for the following medical condition, which is the primary reason for home health care (list medical condition): I certify that, based on my findings, the following services are medically necessary home health services: My clinical findings support the need for the above services because: Further, I certify that my clinical findings support that this patient is homebound (i.e. absences from home require considerable and taxing effort and are for medical reasons or mandaen services or infrequently or of short duration when for other reasons) because: Certification for Home Health Services: Based on the above findings, I certify that this patient is confined to the home and needs intermittent jail care, physical therapy and/or speech therapy or continues to need occupational therapy. The patient is under my care, and I have initiated the establishment of the plan of care. This patient will be followed by a physician who will periodically review the plan of care. Total Time Total Time Spent Total Time Spent (In Minutes): 45 Discharge Plan Discharge Items Patient Disposition: Home - Self-Care Reason For Visit: SOB Discharge Diagnosis: Pericardial effusion Chest discomfort/pain Bilateral Pleural effusions L>R Rule out pneumonia Elevated D-dimer Anemia Rule out autoimmune disease Condition on Discharge: Fair Activity: Resume your previous activity Non-emergency contact: Primary Care Provider Call non-emergency contact if: you have any medication questions and your symptoms worsen Follow-up/Referrals: Jose Nava MD [Physician] - (Date & Time 04/03/2025 9:00 AM Provider: Jose Nava MD Rheumatology [facility]) Yvonne Martinez PA-C [Primary Care Provider] - (Date & Time 04/05/2025 1:00 PM Provider: Yvonne Martinez PA-C Family [facility] ) Gilberto Valdes MD [Outside Practitioners] - (Date & Time 04/05/2025 10:30 AM Provider: Gilberto Valdes MD Pulmonary Medicine, [facility] ) Diet: Regular Addtl Attending Provider Instructions: Follow-up with your primary care physician within a week time and likely you vasile l need labs CBC/CMP/magnesium/phosphorus. You were evaluated for pleural effusion and pericardial effusion. There is strong suspicion of underlying autoimmune etiology. Pulmonology and cardiology evaluated you while inpatient. Follow-up with pulm in 2 weeks and cardiology in 1 to 2 weeks. You will need repeat ECHO in 1-2 weeks. You have been started on colchicine, likely you will need for at least 2 months per cardiology recommendation. You will be discharged with 1 month worth of colchicine, follow-up with cardiology for ongoing evaluation/prescription. You will be discharged on antibiotic to complete the course for possible lung infection. Also you are being discharged on steroid for concern of underlying autoimmune condition, take Protonix daily while on steroid. You are also noted to have iron deficiency anemia, you received iron transfusion on 04/01 and 04/02. You will be discharged on iron supplement. You will need repeat iron studies in about 2 to 3 months time. Follow-up with rheumatology tomorrow morning and further discussion regarding steroid course and future plan of care. Follow up on autoimmune tests ordered while inpatient in coordination with your rheumatology or PCP office. Take your medications as prescribed. Please make sure that you are able to get your medications today by calling your pharmacy before you leave the hospital so that your treatment continuity is not broken. Pending Studies at Discharge: Yes Stand-Alone Forms: [facility] [employer], Smoking Cessation Medications and DC Order Prescriptions: New amoxicillin-pot clavulanate 875-125 mg Tablet 1 tab PO BIDM 9 Days Qty: 18 0RF Probiotic 3 billion cell capsule 3,000 mmu cells PO DAILY 14 Days Qty: 14 0RF Rx Instructions: administer with a meal colchicine [Colcrys] 0.6 mg Tablet 0.6 mg PO BID Qty: 60 0RF prednisone 20 mg tablet 40 mg PO DAILY 7 Days Qty: 14 0RF pantoprazole 40 mg tablet,delayed release (DR/EC) 40 mg PO DAILY 7 Days Qty: 7 0RF ferrous sulfate 325 mg (65 mg iron) tablet 325 mg PO DAILY Qty: 30 0RF Continued multivitamin Tablet 1 tab PO QAM escitalopram oxalate 10 mg tablet 10 mg PO QAM fenofibrate nanocrystallized 145 mg tablet 145 mg PO QAM Held furosemide 40 mg Tablet 40 mg PO QAM Hold Instructions: Resume on 04/13/25. Hold until further follow-up with cardiology upon discharge. potassium chloride 20 mEq Tablet Extended Release 20 meq PO BID Hold Instructions: Resume on 04/14/25. Hold while Lasix on hold. Discharge Orders: Discharge Order (Routine); Ordered 04/02/25 Ordered By: Eugene Limon Admission Data Admit Date/Time: 03/31/25 17:49 Attending Provider: Eugene Limon Admit Provider: Luke Oropeza Primary Care Provider: Yvonne Martinez. Other Providers: Luke Oropeza; Jah Reid; Darling Agarwal
[2025-04-02] MEDS ORDERED: AMOXICILLIN/CLAVULANATE 875 MG TAB PO SCH (17:00)
[2025-04-03 15:36] LABS: Anti-dsDNA Recombinant <1 IU/mL
[2025-04-04 14:42] LABS: Anti Mitochondrial Antibody NEGATIVE (NEGATIVE)
== END 2025-04-02 14:38 | disposition home or self-care (01) | DRG 315 ==
LOC: ED 14:47 → SUATTDRO 17:49 → EDINP 17:49 → 2N 20:18